=== PATIENT | female | born 1955 | race Caucasian/White ===

== ENCOUNTER → 2016-08-01 | Outpatient (CLI) | payer SELFPAY ==
--- NOTE | 2016-08-02 14:07 | MM ---
Reason for exam: screening (asymptomatic). Last mammogram was performed 1 year ago. History: Patient is postmenopausal. Took hormonal contraceptives for 10 years beginning at age 19. Physical Findings: A clinical breast exam by your physician is recommended on an annual basis and results should be correlated with mammographic findings. MG Screening Mammo w CAD Bilateral CC and MLO view(s) were taken. Prior study comparison: July 28, 2015, bilateral MG 3d screening mammo w/cad. There are scattered fibroglandular densities. ASSESSMENT: Benign, BI-RAD 2 RECOMMENDATION: Routine screening mammogram of both breasts in 1 year.
== END | disposition home or self-care (01) ==
LOC: RADMAMWWP 10:57
PROVIDERS: ATTEND Obstetrics & Gynecology
DX: Z12.31 Encounter for screening mammogram for malignant neoplasm of breast (principal)

== ENCOUNTER 2017-05-25 13:31 | Observation (INO) | payer OTHER ==
[2017-05-25] MEDS ORDERED: ASPIRIN 81 MG PO STA (13:51)
[2017-05-25] MEDS ORDERED: RX INFO: IV CONTRAST WAS GIVEN 1 EACH MISC MISCELLANE PRN (13:55)
--- NOTE | 2017-05-25 13:55 | ED ---
Chest Pain HPI - General Chief Complaint: Chest Pain Stated Complaint: Chest pain Time Seen by Provider: 05/25/17 13:36 Source: patient, RN notes reviewed Mode of arrival: wheelchair Limitations: no limitations - History of Present Illness Initial Comments: this a 61-year-old female presents emergency Department from PCPs office for chest pain. Patient states she was woken up around 3 AM with chest pain and pressure and felt that some he was choking her. She states that she wasn't sure what was going on. She had pain especially in the left side of her neck. Patient states she has been sick for last few days with cough and congestion with these symptoms were new. She does have a history of hyperlipidemia hypertension or diabetes no prior cardiac disorders and denies any known COPD though she is a former smoker. Patient states she went PCPs office who sent her here for further evaluation. She denies any current nausea vomiting states that the pain is improved from earlier. Denies any headache or dizziness no focal weakness. - Related Data Home Medications Medication Instructions Recorded Confirmed Atenolol [Tenormin] 50 mg PO BID 05/25/17 05/25/17 Losartan/Hydrochlorothiazide 1 tab PO DAILY 05/25/17 05/25/17 [Hyzaar 100-25 Tablet] Pravastatin Sodium [Pravachol] 40 mg PO HS 05/25/17 05/25/17 amLODIPine [Norvasc] 5 mg PO HS 05/25/17 05/25/17 busPIRone HCl [Buspar] 10 mg PO BID 05/25/17 05/25/17 cloNIDine HCL [Catapres] 0.2 mg PO HS 05/25/17 05/25/17 Allergies Allergy/AdvReac Type Severity Reaction Status Date / Time No Known Allergies Allergy Verified 05/25/17 14:02 Review of Systems ROS Statement: Those systems with pertinent positive or pertinent negative responses have been documented in the HPI. ROS Other: All systems not noted in ROS Statement are negative. EKG Findings - EKG Comments: EKG Findings:: EKG performed at 13:47 normal sinus rhythm with a rate of 73 TX 154, QRS 82 QT/QTC 404/445 Past Medical History Past Medical History: Hypertension History of Any Multi-Drug Resistant Organisms: None Reported Past Surgical History: Tubal Ligation Past Psychological History: Anxiety Smoking Status: Former smoker Past Alcohol Use History: None Reported Past Drug Use History: None Reported General Exam Limitations: no limitations General appearance: alert, in no apparent distress Head exam: Present: atraumatic, normocephalic, normal inspection Eye exam: Present: normal appearance, PERRL, EOMI. Absent: scleral icterus, conjunctival injection, periorbital swelling ENT exam: Present: normal exam, normal oropharynx, mucous membranes moist, TM's normal bilaterally, normal external ear exam Neck exam: Present: normal inspection, full ROM. Absent: tenderness, meningismus, lymphadenopathy Respiratory exam: Present: normal lung sounds bilaterally. Absent: respiratory distress, wheezes, rales, rhonchi, stridor Cardiovascular Exam: Present: regular rate, normal rhythm, normal heart sounds. Absent: systolic murmur, diastolic murmur, rubs, gallop, clicks GI/Abdominal exam: Present: soft, normal bowel sounds. Absent: distended, tenderness, guarding, rebound, rigid Extremities exam: Present: normal inspection, full ROM, normal capillary refill. Absent: tenderness, pedal edema, joint swelling, calf tenderness Back exam: Absent: CVA tenderness (R), CVA tenderness (L) Neurological exam: Present: alert, oriented X3, CN II-XII intact Skin exam: Present: warm, dry, intact, normal color. Absent: rash Course Vital Signs 05/25/17 05/25/17 05/25/17 13:34 14:21 14:28 Temperature 100.5 F H Pulse Rate 71 68 Respiratory 16 16 16 Rate Blood Pressure 218/95 149/87 O2 Sat by Pulse 95 95 Oximetry Disposition Clinical Impression: Chest pain Disposition: ADMITTED IP TO THIS HOSP Condition: Stable Referrals: Conor Mccord MD [Primary Care Provider] - 1-2 days
[2017-05-25] MEDS ORDERED: hydrALAZINE HCL 20 MG/ML 1 ML VIAL IVP STA (13:56)
[2017-05-25 14:18] LABS: Basophils % (A) 0 %; Eosinophils % (A) 0 %; HCT 49.4 % (34.0-46.0); HGB 17.2 gm/dL (11.4-16.0); Lymphocytes # (A) 1.2 k/uL (1.0-4.8); Lymphocytes % (A) 13 %; MCHC 34.9 g/dL (31.0-37.0); MCV 85.9 fL (80.0-100.0); Monocytes # (A) 0.3 k/uL (0-1.0); Monocytes % (A) 3 %; Neutrophils # (A) 7.4 k/uL (1.3-7.7); Neutrophils % (A) 81 %; Platelet Count 425 k/uL (150-450); RBC 5.75 m/uL (3.80-5.40); RDW 12.8 % (11.5-15.5); WBC 9.1 k/uL (3.8-10.6)
[2017-05-25 14:27] LABS: ALT 43 U/L (9-52); AST 36 U/L (14-36); Albumin 4.8 g/dL (3.5-5.0); Alkaline Phosphatase 75 U/L (38-126); Anion Gap 17 mmol/L; Blood Urea Nitrogen 10 mg/dL (7-17); Calcium 10.5 mg/dL (8.4-10.2); Carbon Dioxide 21 mmol/L (22-30); Chloride 103 mmol/L (98-107); Glucose 117 mg/dL (74-99); Lipase 117 U/L (23-300); Magnesium 1.9 mg/dL (1.6-2.3); Potassium 4.2 mmol/L (3.5-5.1); Sodium 141 mmol/L (137-145); Total Bilirubin 0.8 mg/dL (0.2-1.3); Total Protein 7.9 g/dL (6.3-8.2)
[2017-05-25 14:29] LABS: INR 1.1 (<1.2); Partial Thromboplastin Time 23.3 sec (22.0-30.0); Prothrombin Time 10.7 sec (9.0-12.0)
[2017-05-25 14:39] LABS: Creatine Kinase 64 U/L (30-135)
[2017-05-25 14:52] LABS: Creatine Kinase MB 0.9 ng/mL (0.0-2.4); Troponin I <0.012 ng/mL (0.000-0.034)
--- NOTE | 2017-05-25 14:57 | CT ---
EXAMINATION TYPE: CT chest angio for PE DATE OF EXAM: 05/25/2017 COMPARISON: NONE HISTORY: 61-year-old female Mid chest pain and shortness of breath. TECHNIQUE: Contiguous axial scanning of the chest performed with IV Contrast, patient injected with 1 00 mL of Isovue 370. Coronal/sagittal MIP reconstructions performed. CT DLP: 239.6 mGycm Automated exposure control for dose reduction was used. FINDINGS: Heart is normal size without pericardial effusion. Aorta normal caliber with conventional arch vessel branching anatomy. No thoracic lymphadenopathy. While there is satisfactory opacification of the pulmonary system, there aren't respiratory motion ar tifacts limiting assessment; no definite pulmonary embolus is seen. No flattening of the interventric ular septum by reflux of contrast into the hepatic veins. Mild diffuse bronchial wall thickening. Some hazy areas of atelectasis in the lower lungs. No consoli dation or pleural effusion. Mild biapical pleural-parenchymal scarring is noted. Moderate to large hiatal hernia. Subtle 8mm nodularity right adrenal gland statistically represents a benign adrenal adenoma. Bones: No osseous destructive process. IMPRESSION: 1. RESPIRATORY MOTION ARTIFACTS LIMITING THE EXAM. NO DEFINITE PULMONARY EMBOLUS. 2. MILD DIFFUSE BRONCHIAL WALL THICKENING SUGGESTS BRONCHITIS OR ASTHMA. 3. MODERATE TO LARGE HIATAL HERNIA. 4. AN 8 MM NODULE OF THE RIGHT ADRENAL GLAND. STATISTICALLY, REPRESENTS A BENIGN ADRENAL ADENOMA. ONE -YEAR FOLLOW-UP EXAMINATION CAN BE PERFORMED.
--- NOTE | 2017-05-25 14:58 | XR ---
EXAMINATION TYPE: XR chest 2V DATE OF EXAM: 05/25/2017 COMPARISON: NONE HISTORY: Chest pain for one day TECHNIQUE: Frontal and lateral views of the chest are obtained. FINDINGS: There is no focal air space opacity, pleural effusion, or pneumothorax seen. The cardiac silhouette size is within normal limits. The osseous structures are intact. There is a moderate hia yi hernia seen. IMPRESSION: No acute cardiopulmonary process. Moderate hernia.
[2017-05-25] MEDS ORDERED: NITROGLYCERIN SL TABS 0.4 MG TAB SUBLINGUAL PRN (15:42)
[2017-05-25] MEDS ORDERED: HEPARIN SODIUM,PORCINE 5,000 UNIT/ML 1 ML VIAL IV ONE (15:42)
[2017-05-25] MEDS ORDERED: HEPARIN SOD,PORK IN 0.45% NACL 25,000 UNIT in 0.45% NACL 1 500ML.BAG IV SCH (15:45)
[2017-05-25] MEDS ORDERED: LORazepam 2 MG/ML INJ IV STA (16:41)
[2017-05-25] MEDS ORDERED: ALPRAZolam 0.25 MG TAB PO PRN (18:34)
[2017-05-25] MEDS ORDERED: ACETAMINOPHEN TAB 325 MG TAB PO PRN (19:41)
[2017-05-25] MEDS ORDERED: BENZOCAINE/MENTHOL LOZENG 1 EACH LOZENGE MUCOUS MEM PRN (19:46)
[2017-05-25 20:17] LABS: Creatine Kinase 58 U/L (30-135)
[2017-05-25] MEDS: ATENOLOL 50 MG TAB PO SCH (20:21)
[2017-05-25] MEDS: busPIRone HCl 10 MG TAB PO SCH (20:21)
[2017-05-25 20:30] LABS: Creatine Kinase MB 0.7 ng/mL (0.0-2.4); Troponin I <0.012 ng/mL (0.000-0.034)
[2017-05-25] MEDS ORDERED: cloNIDine HCL 0.2 MG TAB PO SCH (21:00)
[2017-05-25] MEDS ORDERED: amLODIPine 5 MG TAB PO SCH (21:00)
[2017-05-25] MEDS ORDERED: PRAVASTATIN SODIUM 40 MG TAB PO SCH (21:00)
[2017-05-25 23:37] VITALS: RESP 18
[2017-05-26] MEDS ORDERED: guaiFENesin SYRUP 100MG/5ML 200 MG/10 ML CUP PO PRN (01:26)
[2017-05-26 02:52] LABS: Creatine Kinase 53 U/L (30-135)
[2017-05-26 03:04] LABS: Creatine Kinase MB 0.8 ng/mL (0.0-2.4); Troponin I <0.012 ng/mL (0.000-0.034)
[2017-05-26 06:35] LABS: Cholesterol 182 mg/dL (<200); HDL Cholesterol 55 mg/dL (40-60); LDL Cholesterol,Calculated 92 mg/dL (0-99); Triglycerides 173 mg/dL (<150)
[2017-05-26 07:39] VITALS: TEMP 98.5
[2017-05-26] MEDS: busPIRone HCl 10 MG TAB PO SCH (08:23)
[2017-05-26] MEDS ORDERED: ASPIRIN 325 MG TAB PO SCH (09:00)
[2017-05-26] MEDS ORDERED: LOSARTAN-HCTZ 50-12.5 MG 1 EACH TAB PO SCH (09:00)
--- NOTE | 2017-05-26 09:20 | P.CRDCN ---
History of Present Illness History of present illness: Assessment 61-year-old female presenting with tightness in the throat lasting seconds in association with a sore throat difficult to swallowing upper respiratory infection and vague discomfort in the chest normal cardiac enzymes normal ECG Early onset hypertension with 30s. Family history of hypertension starting in the mid 30s dyslipidemia Adrenal nodule noted on CT Plan Exercise stress test maximum capacity Serum aldosterone, aspirin an life enrichment director, metanephrines Renal artery Dopplers, bilateral Increase amlodipine continue losartan and hydrochlorothiazide stop clonidine and try tapering of atenolol Further cardiovascular workup as an outpatient Past Medical History Past Medical History: Hyperlipidemia, Hypertension Additional Past Medical History / Comment(s): 3 HERNIATED DISC, ARTHRITIS History of Any Multi-Drug Resistant Organisms: None Reported Past Surgical History: Ablation, Tubal Ligation Past Anesthesia/Blood Transfusion Reactions: No Reported Reaction Smoking Status: Former smoker - Past Family History Mother Family Medical History: Hypertension, Osteoarthritis (OA) Additional Family Medical History / Comment(s): DEPRESSION, LUNG DISEASE Father Family Medical History: Cancer Additional Family Medical History / Comment(s): THROAT CA WAS HEAVY SMOKER AND DRINKER Medications and Allergies Home Medications Medication Instructions Recorded Confirmed Type Atenolol [Tenormin] 50 mg PO BID 05/25/17 05/25/17 History Losartan/Hydrochlorothiazide 1 tab PO DAILY 05/25/17 05/25/17 History [Hyzaar 100-25 Tablet] Pravastatin Sodium [Pravachol] 40 mg PO HS 05/25/17 05/25/17 History amLODIPine [Norvasc] 5 mg PO HS 05/25/17 05/25/17 History busPIRone HCl [Buspar] 10 mg PO BID 05/25/17 05/25/17 History cloNIDine HCL [Catapres] 0.2 mg PO HS 05/25/17 05/25/17 History Aspirin [Adult Low Dose Aspirin EC] 81 mg PO HS 05/26/17 05/26/17 History Allergies Allergy/AdvReac Type Severity Reaction Status Date / Time No Known Allergies Allergy Verified 05/25/17 14:02 Physical Exam Vitals: Vital Signs Temp Pulse Pulse Resp BP BP Pulse Ox 05/26/17 08:00 18 05/26/17 07:39 98.5 F 71 18 137/75 97 05/26/17 04:00 98.6 F 69 18 141/77 98 05/26/17 03:43 18 05/25/17 23:35 18 05/25/17 23:07 98.6 F 68 17 99/59 100 05/25/17 20:00 98.1 F 70 18 142/69 96 05/25/17 17:16 98.8 F 72 17 147/79 97 05/25/17 16:48 163/83 05/25/17 16:17 98 F 66 16 185/84 96 05/25/17 15:55 98.9 F 68 16 160/90 98 05/25/17 14:28 68 16 149/87 95 05/25/17 14:21 16 05/25/17 13:34 100.5 F H 71 16 218/95 95 Intake and Output 05/25/17 05/26/17 05/26/17 22:59 06:59 14:59 Intake Total 740 225.76 Balance 740 225.76 Intake: Intake, IV Titration 225.76 Amount Heparin Sod,Pork in 0.45% 225.76 NaCl 25,000 unit In 0.45 % NaCl 1 500ml.bag @ 12 UNITS/KG/HR 16.32 mls/hr IV .Q24H [facility] Rx#: [id number] Oral 740 Other: Voiding Method Toilet Toilet Toilet # Voids 1 Weight 67.3 kg Results 05/25/17 14:01 05/25/17 14:01 Cardiac Enzymes 05/25/17 05/25/17 05/25/17 Range/Units 14:01 14:01 19:38 AST 36 (14-36) U/L CK-MB (CK-2) 0.9 0.7 (0.0-2.4) ng/mL Troponin I <0.012 <0.012 (0.000-0.034) ng/mL 05/26/17 Range/Units 01:57 AST (14-36) U/L CK-MB (CK-2) 0.8 (0.0-2.4) ng/mL Troponin I <0.012 (0.000-0.034) ng/mL Coagulation 05/25/17 05/25/17 05/26/17 Range/Units 14:01 23:18 05:36 PT 10.7 (9.0-12.0) sec APTT 23.3 49.5 H 44.7 H (22.0-30.0) sec Lipids 05/26/17 Range/Units 05:36 Triglycerides 173 H (<150) mg/dL Cholesterol 182 (<200) mg/dL HDL Cholesterol 55 (40-60) mg/dL CBC 05/25/17 Range/Units 14:01 WBC 9.1 (3.8-10.6) k/uL RBC 5.75 H (3.80-5.40) m/uL Hgb 17.2 H (11.4-16.0) gm/dL Hct 49.4 H (34.0-46.0) % Plt Count 425 (150-450) k/uL Comprehensive Metabolic Panel 05/25/17 Range/Units 14:01 Sodium 141 (137-145) mmol/L Potassium 4.2 (3.5-5.1) mmol/L Chloride 103 (98-107) mmol/L Carbon Dioxide 21 L (22-30) mmol/L BUN 10 (7-17) mg/dL Creatinine 0.73 (0.52-1.04) mg/dL Glucose 117 H (74-99) mg/dL Calcium 10.5 H (8.4-10.2) mg/dL AST 36 (14-36) U/L ALT 43 (9-52) U/L Alkaline Phosphatase 75 (38-126) U/L Total Protein 7.9 (6.3-8.2) g/dL Albumin 4.8 (3.5-5.0) g/dL Current Medications Generic Name Dose Route Start Last Admin Trade Name Freq PRN Reason Stop Dose Admin Acetaminophen 650 mg 05/25/17 19:41 05/25/17 20:21 Tylenol Tab PO 650 mg Q4HR PRN Administration Fever and/ or Pain Alprazolam 0.25 mg 05/25/17 18:34 05/26/17 02:21 Xanax PO 0.25 mg Q8HR PRN Administration Anxiety Amlodipine Besylate 10 mg 05/26/17 21:00 Norvasc PO HS [facility] Aspirin 325 mg 05/26/17 09:00 05/26/17 08:23 Aspirin PO 325 mg DAILY [facility] Administration Atenolol 50 mg 05/25/17 21:00 05/25/17 20:21 Tenormin PO 50 mg BID [facility] Administration Benzocaine/Menthol 1 each 05/25/17 19:46 05/25/17 20:20 Cepacol Lozenge MUCOUS MEM 1 each Q4HR PRN Administration Sore Throat Buspirone HCl 10 mg 05/25/17 21:00 05/26/17 08:23 Buspar PO 10 mg BID [facility] Administration Guaifenesin 200 mg 05/26/17 01:26 Robitussin PO Q6H PRN Cough HCTZ/Losartan Potassium 2 each 05/26/17 09:00 05/26/17 08:23 Hyzaar 50-12.5 PO 2 each DAILY [facility] Administration Miscellaneous Information 1 each 05/25/17 13:55 05/25/17 14:34 Rx Info: Iv Contrast Was Given MISCELLANE 05/27/17 13:55 1 each DAILY PRN Administration Per Protocol Nitroglycerin 0.4 mg 05/25/17 15:42 Nitrostat SUBLINGUAL Q5M PRN Chest Pain Pravastatin Sodium 40 mg 05/25/17 21:00 05/25/17 20:21 Pravachol PO 40 mg HS [facility] Administration Intake and Output 05/25/17 05/26/17 05/26/17 22:59 06:59 14:59 Intake Total 740 225.76 Balance 740 225.76 Intake: Intake, IV Titration 225.76 Amount Heparin Sod,Pork in 0.45% 225.76 NaCl 25,000 unit In 0.45 % NaCl 1 500ml.bag @ 12 UNITS/KG/HR 16.32 mls/hr IV .Q24H [facility] Rx#: [id number] Oral 740 Other: Voiding Method Toilet Toilet Toilet # Voids 1 Weight 67.3 kg 05/25/17 14:01 05/25/17 14:01
--- NOTE | 2017-05-26 10:02 | CONS ---
CONSULTATION Roxie moura is a 61-year-old female who woke up from her sleep complaining of a tightness and a choking sensation in the throat as well as some upper chest discomfort. She went to see Dr. Conor Mccord and was sent to the ER to rule out possible AL. For the last few days, she has been experiencing some cough and upper respiratory infection and mild bronchitic symptoms. She woke up in the middle of the night and experienced this choking, tightness in her throat that lasted for just a few seconds. It was a very brief episode. She does not have the choking sensation anymore, but she does have a very mild dull ache in the upper chest, which has been constant since arrival, greater than 12 hours back. She has swallowing difficulty. She says she has a sore throat. She actually does not come out with this history, but later she says she does have a sore throat. She looks comfortable at this time. She says she has anxiety and she is very nervous when she came in. Her blood pressure was high. Her blood pressure now is better. She is on 4 different blood pressure medications and she does not like the fact that she has to take so many blood pressure pills. PAST HISTORY: Past history of being sick for the last few days with cough, congestion. History of hypertension. She has no diabetes. She has dyslipidemia. She is on medication for that. SOCIAL HISTORY: She is a former former smoker. She had not smoked cigarettes for almost 10 years. REVIEW OF SYSTEMS: No fever, chills, or rigors. She did have a cough and some expectoration and upper respiratory infection. No nausea, vomiting, or diarrhea. No hematuria or dysuria. No strokes or seizures. No skin lesions or musculoskeletal complaints. MEDICATIONS: Medications at home include Tenormin 50 mg twice daily, losartan hydrochlorothiazide 100/25 mg p.o. daily, Pravachol 40 mg p.o. daily, amlodipine 5 mg q.h.s., BuSpar and clonidine 0.2 mg q.h.s. ALLERGIES: No known drug allergies. FAMILY HISTORY: Noncontributory. PHYSICAL EXAMINATION: On examination, her blood pressure is 137/75 mmHg, 141/77 mmHg. Head and neck examination is normal. No JVD, thyromegaly or carotid bruits. Heart sounds S1, S2 normal. No murmurs or gallops. No rub. Breath sounds reveal scattered rhonchi and some crackles at the bases. Abdomen is soft, nontender. Extremities are warm. No edema. A 12-lead ECG shows sinus rhythm with normal cardiac intervals. There is no definite ST-segment abnormality today. Yesterday she had a very subtle ST-segment abnormality in the lateral precordial leads, but these look normal today. LABS: Labs are reviewed. Cardiac enzymes are completely normal x3. Lipid panel was reviewed. Triglycerides 173, cholesterol 182, LDL 92, and HDL 55. BUN is 10, creatinine 0.73. Hemoglobin 17.2, white count is normal. Lipase is normal. Influenza type A and B not detected. IMPRESSION: 1. Upper respiratory infection with sore throat. 2. Mild chest discomfort and tightness in the throat. The tightness in the throat was extremely brief. 3. No evidence for myocardial injury. 4. Hypertension with fluctuating blood pressures and somewhat blood pressure control despite multiple medications. 5. Dyslipidemia. SUGGEST: Stop IV heparin. Increase amlodipine to 10 mg at night. Continue losartan hydrochlorothiazide 100/25 mg p.o. daily. Stop clonidine completely to avoid rebound hypertension and consider slowly tapering off atenolol completely and use 2 medications to control her blood pressure. The alternative for losartan hydrochlorothiazide would be irbesartan hydrochlorothiazide. Stress test will be ordered today. Her blood pressure is in the normal range. If this is normal, she may go home. I will see her again in about 2 to 3 weeks. I will also order a renal artery Doppler today because she has had hypertension after the of her daughter when she was about 36. She has a strong family history of hypertension of an early onset. Her brother had hypertension in his mid 30s and so did her mother. The CT scan confirmed her mild bronchitic symptoms with peribronchial cuffing. It also showed an 8 mm adrenal nodule and therefore some basic workup should probably be considered although she is on losartan at this time. MMODL / IJN: [id number] /
--- NOTE | 2017-05-26 10:25 | US ---
EXAMINATION TYPE: US renal artery duplex complete DATE OF EXAM: 05/26/2017 COMPARISON: NONE CLINICAL HISTORY: high blood pressure. HTN for 30 years MEASUREMENTS: RENAL SIZE: Rt Kidney: 10.4 x 3.4 x 4.3cm Lt Kidney: 10.2 x 5.0 x 4.6cm RESISTANCE INDEX Right: 0.54 Left: 0.59 RA/AO RATIO (< 3.5 ) Right: 2.4 Left: 2.2 RA VELOCITY ( < 180 cm/s) Right: 184.9cm/s Left: 167.3cm/s Aorta and renals appear unremarkable. Right proximal renal artery appears upper limits of normal. Low resistive waveforms noted throughout IMPRESSION: There is some increased velocity within the right renal artery. Consider additional workup with MRA r enal arteries. Resistive index and ratios however appear within normal limits suggesting degree of st enosis may be mild.
[2017-05-26] MEDS: ATENOLOL 50 MG TAB PO SCH (11:05)
[2017-05-26 11:22] VITALS: BP 114/78; PULSE 85
--- NOTE | 2017-05-26 12:23 | ECHOS ---
STRESS ECHOCARDIOGRAM DATE OF SERVICE: 05/26/2017 INDICATIONS: Chest pain. MEDICATIONS: BASELINE HEART RATE: 84 BASELINE BLOOD PRESSURE: 142/106 MAXIMUM HEART RATE: 152 MAXIMUM BLOOD PRESSURE: 211/105 85% MPHR: 137 100% MPHR: 161 METS: 9.1 MAXIMUM STAGE REACHED: III TOTAL EXERCISE TIME: 7:30 CLINICAL INFORMATION: History of chest discomfort and discomfort in the throat, history of hypertension, suboptimal control, history of dyslipidemia. Baseline heart rate 84 beats per minute. Baseline blood pressure 142/106 mmHg. Baseline 12-lead ECG shows showed normal sinus rhythm with normal ST segments. The patient exercised on a Frederick protocol for 7-1/2 minutes achieving a peak heart rate of 152 beats per minute, hypertensive response to exercise 211/105 mmHg. There was no ECG evidence for ischemia during exercise up until 2 minutes into recovery. Thereafter, there was [address] depression with inverted T-waves noted without any symptoms. The baseline 2D echo images were suboptimal. Therefore, Definity contrast was used to the endocardial borders of the left ventricle. At baseline the LV size and function was normal without segmental wall motion abnormalities. At peak exercise, there was excellent augmentation of overall LV contractility without development of any wall motion abnormalities. At recovery regional global LV systolic function remained completely normal with excellent myocardial thickening. At the time of ST-T changes late into recovery, the patient remained asymptomatic. The LV function was normal and LV contractility was excellent with excellent myocardial thickening throughout without any wall motion abnormalities. IMPRESSION: Likely false-positive stress test in this lady with history of suboptimal hypertension control. SUGGEST: Maximize antihypertensive therapy and continue statins and baby aspirin. MMODL / IJN: [id number] /
--- NOTE | 2017-05-26 13:37 | P.HPIM ---
History of Present Illness H&P Date: 05/26/17 HISTORY AND PHYSICAL AND DISCHARGE SUMMARY: This is a 61-year-old female patient of Dr. Conor Mccord with past medical history of hyperlipidemia, hypertension, herniated lumbar disc, osteoarthritis. Patient states that she woke up at 3 in the morning with chest pain and pressure and choking feeling in her throat along with a sore throat and feeling like her neck was could not close up on her. She also felt a little dizzy. No arm pain, no numbness or tingling of the arms, no sweating no nausea. Patient went to Dr. Conor Mccord's office and was directed to the emergency center. Patient presented to [facility] emergency center with the above concerns. She was found to have a blood pressure of 218/ 95. She was started on heparin drip, troponin was negative initially influenza testing negative, triglycerides 173, cholesterol 182, LDl 92, HDL 55. Hemoglobin 17.2. Electrodes were within normal limits and creatinine 0.73. Patient is also states that she had a cold last week as well as her and has had ongoing problems with nasal congestion. At this time, she states her throat is so sore that she can't swallow or eat food. She underwent a CTA of the chest that showed no definite PE. Bronchitis or asthma. Large hiatal hernia. 8 mm nodule of the right adrenal gland most likely benign adrenal adenoma. Patient was placed on the observation unit and started on heparin drip. Serial troponins were done which were all negative Dr. Mejia from cardiology and he increased her amlodipine to 10 mg and discontinue clonidine with plan to taper atenolol and continue losartan and hydrochlorothiazide. He is ordered an exercise stress test that was a false-positive stress test with recommendations to maximize antihypertensive therapy and continue statins and baby aspirin. Renal duplex revealed some increased velocity within the right renal artery. Consider additional workup with MRA of the renal arteries. Patient verbalizes that she has had ongoing problems with anxiety and she can hardly sleep during the night due to anxiety. Patient will be started on Klonopin 0.5 mg at bedtime. She is already on which will be increased to 15 mg twice daily. Patient will be discharged home today in stable condition. Discharge Medication List Atenolol [Tenormin] 50 mg PO BID 05/25/17 [History] Losartan/Hydrochlorothiazide [Hyzaar 100-25 Tablet] 1 tab PO DAILY 05/25/17 [ History] Pravastatin Sodium [Pravachol] 40 mg PO HS 05/25/17 [History] busPIRone HCl [Buspar] 10 mg PO BID 05/25/17 [History] Aspirin [Adult Low Dose Aspirin EC] 81 mg PO HS 05/26/17 [History] amLODIPine [Norvasc] 10 mg PO HS #30 tab 05/26/17 [Rx] busPIRone HCL [Buspar] 15 mg PO BID #30 tab 05/26/17 [Rx] clonazePAM [KlonoPIN] 0.5 mg PO HS #30 tablet 05/26/17 [Rx] guaiFENesin SYRUP 100MG/5ML [Robitussin] 200 mg PO Q6H PRN cup 05/26/17 [Rx] Review of Systems All systems: negative Constitutional: Reports poor appetite, Denies anorexia, Denies chills, Denies fatigue, Denies fever, Denies lethargy, Denies malaise, Denies night sweats, Denies sweats, Denies weakness, Denies weight loss Eyes: denies blurred vision, denies pain Ears, nose, mouth and throat: Reports nasal congestion, Reports swelling in throat, Reports sore throat, Denies dental pain, Denies headache, Denies hoarseness, Denies mouth pain, Denies vertigo Cardiovascular: Reports chest pain, Reports high blood pressure, Reports lightheadedness, Denies decreased exercise tolerance, Denies dyspnea on exertion , Denies edema, Denies leg edema, Denies palpitations, Denies shortness of breath, Denies syncope Respiratory: Denies cough, Denies cough with sputum, Denies dyspnea, Denies excessive sputum, Denies hemoptysis, Denies home oxygen, Denies wheezing Gastrointestinal: Denies abdominal pain, Denies diarrhea, Denies nausea, Denies vomiting Genitourinary: Denies dysuria, Denies hematuria Musculoskeletal: Denies myalgias Integumentary: Denies pruritus, Denies rash Neurological: Denies numbness, Denies weakness Psychiatric: Reports anxiety, Reports anxiety attacks, Denies depression Endocrine: Denies fatigue, Denies weight change Past Medical History Past Medical History: Hyperlipidemia, Hypertension, Osteoarthritis (OA) Additional Past Medical History / Comment(s): 3 HERNIATED LUMBAR DISC History of Any Multi-Drug Resistant Organisms: None Reported Past Surgical History: Ablation, Tubal Ligation Past Anesthesia/Blood Transfusion Reactions: No Reported Reaction Smoking Status: Former smoker Additional Past Alcohol Use History / Comment(s): Patient was a smoker for 19 years and quit in 1992. 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 She lives at home with her . - Past Family History Mother Family Medical History: Hypertension, Osteoarthritis (OA) Additional Family Medical History / Comment(s): Mother at age 78 from consultations from COPD with history of depression and generalized anxiety disorder Father Family Medical History: Cancer Additional Family Medical History / Comment(s): Father at age 50 from THROAT CA WAS HEAVY SMOKER AND DRINKER Brother(s) Additional Family Medical History / Comment(s): Patient has 4 brothers and one has history of prostate cancer. Patient does not have any sisters. Patient has one son with some type of cancer and one daughter with no major medical problems. Medications and Allergies Home Medications Medication Instructions Recorded Confirmed Type Atenolol [Tenormin] 50 mg PO BID 05/25/17 05/25/17 History Losartan/Hydrochlorothiazide 1 tab PO DAILY 05/25/17 05/25/17 History [Hyzaar 100-25 Tablet] Pravastatin Sodium [Pravachol] 40 mg PO HS 05/25/17 05/25/17 History busPIRone HCl [Buspar] 10 mg PO BID 05/25/17 05/25/17 History Aspirin [Adult Low Dose Aspirin EC] 81 mg PO HS 05/26/17 05/26/17 History amLODIPine [Norvasc] 10 mg PO HS #30 tab 05/26/17 Rx busPIRone HCL [Buspar] 15 mg PO BID #30 tab 05/26/17 Rx clonazePAM [KlonoPIN] 0.5 mg PO HS #30 tablet 05/26/17 Rx guaiFENesin SYRUP 100MG/5ML 200 mg PO Q6H PRN cup 05/26/17 Rx [Robitussin] Allergies Allergy/AdvReac Type Severity Reaction Status Date / Time No Known Allergies Allergy Verified 05/25/17 14:02 Physical Exam Vitals: Vital Signs Temp Pulse Pulse Resp BP BP Pulse Ox 05/26/17 08:00 18 05/26/17 07:39 98.5 F 71 18 137/75 97 05/26/17 04:00 98.6 F 69 18 141/77 98 05/26/17 03:43 18 05/25/17 23:35 18 05/25/17 23:07 98.6 F 68 17 99/59 100 05/25/17 20:00 98.1 F 70 18 142/69 96 05/25/17 17:16 98.8 F 72 17 147/79 97 05/25/17 16:48 163/83 05/25/17 16:17 98 F 66 16 185/84 96 05/25/17 15:55 98.9 F 68 16 160/90 98 05/25/17 14:28 68 16 149/87 95 05/25/17 14:21 16 05/25/17 13:34 100.5 F H 71 16 218/95 95 Intake and Output 05/25/17 05/26/17 05/26/17 22:59 06:59 14:59 Intake Total 740 225.76 Balance 740 225.76 Intake: Intake, IV Titration 225.76 Amount Heparin Sod,Pork in 0.45% 225.76 NaCl 25,000 unit In 0.45 % NaCl 1 500ml.bag @ 12 UNITS/KG/HR 16.32 mls/hr IV .Q24H [facility] Rx#: [id number] Oral 740 Other: Voiding Method Toilet Toilet Toilet # Voids 1 Weight 67.3 kg Gen: This is a 61-year-old female sitting at edge of the bed and appears to be in no acute distress. Patient is able to speak in full sentences. No respiratory distress is noted. HEENT: Head is atraumatic, normocephalic. Pupils equal, round. Sclerae is anicteric. Oral mucous membranes are moist. No thrush noted. NECK: Supple. No JVD. No lymphadenopathy. No thyromegaly. No stridor noted. LUNGS: Clear to auscultation. No wheezes or rhonchi. No intercostal retractions. HEART: Regular rate and rhythm. No murmur. ABDOMEN: Soft. Bowel sounds are present. No masses. No tenderness. EXTREMITIES: No pedal edema. No calf tenderness. Dorsalis pedis +2 bilaterally. NEUROLOGICAL: Patient is awake, alert and oriented x3. Cranial nerves 2 through 12 are grossly intact. Results CBC & Chem 7: 05/25/17 14:01 05/25/17 14:01 Labs: Abnormal Lab Results - Last 24 Hours (Table) 05/25/17 05/25/17 05/25/17 Range/Units 14:01 14:01 23:18 RBC 5.75 H (3.80-5.40) m/uL Hgb 17.2 H (11.4-16.0) gm/dL Hct 49.4 H (34.0-46.0) % APTT 49.5 H (22.0-30.0) sec Carbon Dioxide 21 L (22-30) mmol/L Glucose 117 H (74-99) mg/dL Calcium 10.5 H (8.4-10.2) mg/dL Triglycerides (<150) mg/dL 05/26/17 05/26/17 Range/Units 05:36 05:36 RBC (3.80-5.40) m/uL Hgb (11.4-16.0) gm/dL Hct (34.0-46.0) % APTT 44.7 H (22.0-30.0) sec Carbon Dioxide (22-30) mmol/L Glucose (74-99) mg/dL Calcium (8.4-10.2) mg/dL Triglycerides 173 H (<150) mg/dL Thrombosis Risk Factor Assmnt - Choose All That Apply Any of the Below Risk Factors Present?: Yes Each Factor Represents 1 point: Age 41-60 years Other Risk Factors: No Other congenital or acquired thrombophilia - If yes, enter type in comment: No Thrombosis Risk Factor Assessment Total Risk Factor Score: 1 Thrombosis Risk Factor Assessment Level: Low Risk Assessment and Plan Plan: 1. Chest pain most likely secondary to generalized anxiety disorder or accelerated hypertension. Continue losartan and hydrochlorothiazide, atenolol, amlodipine increased to 10 mg and Catapres discontinued. 2. Accelerated hypertension. Medication changes made by Dr. Mejia. Aldosterone, renin direct and metanephrines ordered. 3. Possible right renal artery stenosis. Patient will have an outpatient MRA. 4. Generalized anxiety disorder with panic attacks and insomnia. BuSpar increased to 50 mg twice daily and Klonopin added. 5. Chronic pain with 3 herniated lumbar disc, stable. 6. Hyperlipidemia. Continue Pravachol 40 mg at bedtime. 7. Recent upper respiratory tract infection, stable. No need for antibiotics. Patient placed as an observation stay. Discharge plan: home Impression and plan of care have been directed as dictated by the signing physician. Zahira Ross nurse practitioner acting as scribe for signing physician.
[2017-05-26] MEDS ORDERED: amLODIPine 10 MG TAB PO SCH (21:00)
== END 2017-05-26 13:10 | disposition home or self-care (01) ==
LOC: EC 13:31 → 3OBS 15:56
PROVIDERS: ADMIT Internal Medicine; ATTEND Internal Medicine
DX: R07.89 Other chest pain (principal); F41.1 Generalized anxiety disorder; I10 Essential (primary) hypertension; J06.9 Acute upper respiratory infection, unspecified; J02.9 Acute pharyngitis, unspecified; G47.00 Insomnia, unspecified; F41.0 Panic disorder [episodic paroxysmal anxiety]; G89.29 Other chronic pain; M51.26 Other intervertebral disc displacement, lumbar region; E78.5 Hyperlipidemia, unspecified; M19.90 Unspecified osteoarthritis, unspecified site; D35.00 Benign neoplasm of unspecified adrenal gland; R42 Dizziness and giddiness; R09.89 Other specified symptoms and signs involving the circulatory and respiratory systems; Z87.891 Personal history of nicotine dependence; Z77.22 Contact with and (suspected) exposure to environmental tobacco smoke (acute) (chronic); Z82.5 Family history of asthma and other chronic lower respiratory diseases; Z81.8 Family history of other mental and behavioral disorders; Z80.8 Family history of malignant neoplasm of other organs or systems; Z80.42 Family history of malignant neoplasm of prostate; Z80.9 Family history of malignant neoplasm, unspecified; Z79.899 Other long term (current) drug therapy; Z79.82 Long term (current) use of aspirin
CPT/HCPCS: 99285 ×2; 96376 ×2; 96375 ×2; 96365 ×2; 96366 ×2; 36415; 93005; 93350; 93017; 83835; 83880; 80061; 80053; 82088; 82550 ×2; 82553 ×2; 84244; 83690; 83735; 84484 ×2; 85025; 85610; 85730 ×2; 87502; 71046; 93975; 71275; G0378 ×2; J2060; J1644 ×2; Q9950; Q9967

== ENCOUNTER → 2017-08-21 | Outpatient (CLI) | payer SELFPAY ==
--- NOTE | 2017-08-22 08:36 | MM ---
Reason for exam: screening (asymptomatic). Last mammogram was performed 1 year and 1 month ago. History: Patient is postmenopausal. Took hormonal contraceptives for 10 years beginning at age 19. Physical Findings: A clinical breast exam by your physician is recommended on an annual basis and results should be correlated with mammographic findings. MG Screening Mammo w CAD Bilateral CC and MLO view(s) were taken. Prior study comparison: August 01, 2016, bilateral MG screening mammo w CAD. July 28, 2015, bilateral MG 3d screening mammo w/cad. The breast tissue is heterogeneously dense. This may lower the sensitivity of mammography. Finding: There is a 10 mm equal density (isodense), obscured oval mass in the outer quadrant of the right breast. ASSESSMENT: Incomplete: need additional imaging evaluation, BI-RAD 0 RECOMMENDATION: Special view mammogram of the right breast. If lesion persists on supplemental views, image directed ultrasound is recommended. [facility] will attempt to contact patient to return for supplemental views and ultrasound if indicated.
== END | disposition home or self-care (01) ==
LOC: RADMAMWWP 12:47
PROVIDERS: ATTEND Family Medicine
DX: Z13.21 Encounter for screening for nutritional disorder (principal)
CPT/HCPCS: 77067

== ENCOUNTER → 2017-09-05 | Outpatient (CLI) | payer SELFPAY ==
--- NOTE | 2017-09-05 14:02 | MM ---
Reason for exam: additional evaluation requested from abnormal screening. Last mammogram was performed less than 1 month ago. History: Patient is postmenopausal. Took hormonal contraceptives for 10 years beginning at age 19. Physical Findings: Nurse did not find any significant physical abnormalities on exam. MG Work Up Mamm w CAD RT Spot compression CC, LM, and CC view(s) were taken of the right breast. Prior study comparison: August 21, 2017, bilateral MG screening mammo w CAD. August 01, 2016, bilateral MG screening mammo w CAD. July 28, 2015, bilateral MG 3d screening mammo w/cad. No definite lesion persist on additional views. Area felt to reflect asymmetric tissue. These results were verbally communicated with the patient and result sheet given to the patient on 09/05/17. ASSESSMENT: Benign, BI-RAD 2 RECOMMENDATION: Return to routine screening mammogram schedule for both breasts.
== END | disposition home or self-care (01) ==
LOC: RADMAMWWP 12:35
PROVIDERS: ATTEND Family Medicine
DX: R92.8 Other abnormal and inconclusive findings on diagnostic imaging of breast (principal)
CPT/HCPCS: 77065

== ENCOUNTER 2018-01-16 10:13 | Day surgery (SDC) | payer OTHER ==
[~2018-01-16 10:13] MED LIST: LACTATED RINGERS 1,000 ML IV SCH
[2018-01-16] MEDS ORDERED: LACTATED RINGERS 1,000 ML IV ONE (11:03)
[2018-01-16 11:04] VITALS: TEMP 99.8
[2018-01-16] MEDS ORDERED: LIDOCAINE 1% 20 ML VIAL (10MG/ML) FOR IV START INTRADERMA ONE (11:10)
[2018-01-16] MEDS ORDERED: PROPOFOL 10 MG/ML 20 ML VIAL IV ONE (12:03)
[2018-01-16 13:05] VITALS: RESP 16
--- NOTE | 2018-01-16 13:08 | P.PCN ---
Date of Procedure: 01/16/18 Procedure(s) Performed: Procedures: 1. Esophagogastroduodenoscopy and biopsy. 2. Colonoscopy and biopsy and polypectomy. Preoperative diagnosis: Abdominal bloating, epigastric pain and diarrhea. Postoperative diagnosis: 1. Small sliding hiatal hernia with no obvious esophagitis or complicated reflux disease. 2. Mild antral gastritis. 3. Diverticulosis with no evidence of acute diverticulitis or strictures. 4. Distal sigmoid polyp snared but no large polyps or cancer. 5. Biopsies obtained from the right colon to rule out microscopic colitis. Preparation: HalfLytely prep. Sedation: Was provided by anesthesia. Brief clinical history: The patient is a 62-year-old female who is scheduled for this evaluation for the above reasons. She has been having issues since late last month. Never had prior endoscopy. Procedure: With the patient on her left lateral decubitus position and after informed consent and adequate sedation, I passed the Olympus GIF H19T video upper endoscope through the cricopharyngeus down the esophagus. GE junction was around 32 cm from the incisors and there was a small sliding hiatal hernia but no obvious esophagitis or complicated reflux disease. The endoscope was then passed into the stomach which was insufflated with air and inspected in detail including the retroflex view in the cardia. There was some mottling and erythema in the antrum but no ulcers or erosions. Pyloric channel, duodenal bulb, post bulbar area and descending duodenum appeared within normal limits. I obtained biopsies from the duodenum, antrum and esophagus then the endoscope was withdrawn and I proceeded with the colonoscopy. Perianal area did not show any fissures or fistulas. There were no masses felt on digital rectal examination. The Olympus CFH 190L video colonoscope was then inserted in the rectum in the usual fashion and advanced to the cecum. Few unsuccessful attempts were made to intubate the ileocecal valve and examine the terminal ileum. There were several diverticular orifices seen scattered in the right colon but no evidence of acute diverticulitis or strictures. There was a polyp in the distal sigmoid which I snared and retrieved by suction but there were no polyps or cancer. I retroflexed the endoscope in the rectum before the endoscope was withdrawn and I obtained biopsies from the right colon to rule out microscopic colitis. The patient tolerated the procedure well. Plan: The patient was reassured. She will follow-up with you as planned. Will await biopsy results and make further plans. With the finding of polyp, I anticipate repeating this colonoscopy in 5 years.
[2018-01-16 13:25] VITALS: BP 128/75; PULSE 58
== END 2018-01-16 14:26 | disposition home or self-care (01) ==
LOC: ORWHC2ENDO 10:13
DX: K29.50 Unspecified chronic gastritis without bleeding (principal); K20.9 Esophagitis, unspecified; D12.5 Benign neoplasm of sigmoid colon; K44.9 Diaphragmatic hernia without obstruction or gangrene; K57.30 Diverticulosis of large intestine without perforation or abscess without bleeding; I10 Essential (primary) hypertension; E78.5 Hyperlipidemia, unspecified; M19.90 Unspecified osteoarthritis, unspecified site
CPT/HCPCS: 88305; 45380; 45385; 43239; J2704

== ENCOUNTER → 2018-03-06 | Outpatient (CLI) | payer OTHER ==
--- NOTE | 2018-03-06 11:17 | XR ---
EXAMINATION TYPE: XR chest 2V DATE OF EXAM: 03/06/2018 COMPARISON: Chest x-ray May 25, 2017. CT abdomen and pelvis December 28, 2017 HISTORY: Cough for couple weeks. TECHNIQUE: Frontal and lateral views of the chest are obtained. FINDINGS: There is no focal air space opacity, pleural effusion, or pneumothorax seen. The cardiac silhouette size is within normal limits. Small hiatal hernia is diminished in size from prior. The o sseous structures are intact. IMPRESSION: No new suspicious acute infiltrate.
--- NOTE | 2018-03-06 11:18 | XR ---
EXAMINATION TYPE: XR lumbar spine 2 or 3V DATE OF EXAM: 03/06/2018 CLINICAL HISTORY: Chronic low back pain. TECHNIQUE: Frontal, lateral, and oblique images of the lumbar spine are obtained. COMPARISON: CT abdomen and pelvis December 28, 2017 FINDINGS: There are 5 lumbar type vertebral bodies redemonstrated. The lumbar spine redemonstrates slight levoconvex scoliotic curvature centered L3 level without evidence of acute fracture or disloca tion. Vertebral body heights are within normal limits. There is mild multilevel disc space narrowing with mild to moderate multilevel anterior and lateral spurring redemonstrated. Some vascular calcific ation of the overlying abdominal aorta is again seen. IMPRESSION: As above. No significant change from prior CT.
== END ==
LOC: RADXRMAIN 10:30
PROVIDERS: ATTEND Family Medicine
DX: R05 Cough (principal)
CPT/HCPCS: 71046; 72100

== ENCOUNTER → 2018-05-15 | Outpatient (CLI) | payer OTHER ==
--- NOTE | 2018-05-15 14:45 | XR ---
EXAMINATION TYPE: XR lumbosacral spine min 4V DATE OF EXAM: 05/15/2018 CLINICAL HISTORY: Chronic low back pain with no known injury TECHNIQUE: Frontal, lateral, and oblique images of the lumbar spine are obtained. COMPARISON: 03/06/2018 FINDINGS: There are 5 lumbar type vertebral bodies identified. There is redemonstration of a mild l evoscoliotic curvature of the lumbar spine with apex at L3. Multilevel anterior osteophytes, facet ar thropathy, and endplate sclerosis are seen. The lumbar spine shows satisfactory alignment without bj dence of acute fracture or dislocation. Vertebral body heights and disk space heights are within norm al limits. The oblique images to demonstrate no pars interarticularis defects. The overlying soft tissue appears unremarkable. Minimal atherosclerosis of the abdominal aorta is noted. IMPRESSION: No acute fracture or malalignment is seen in the lumbar spine. Redemonstration of modera te multilevel degenerative disc disease and mild levoscoliosis.
== END | disposition home or self-care (01) ==
LOC: RADXRMAIN 13:53
PROVIDERS: ATTEND Family Medicine
DX: M51.37 Other intervertebral disc degeneration, lumbosacral region (principal); M41.87 Other forms of scoliosis, lumbosacral region
CPT/HCPCS: 72110

== ENCOUNTER → 2018-06-13 | Outpatient (CLI) | payer OTHER ==
--- NOTE | 2018-06-13 14:34 | USB ---
Reason for exam: clinical finding. History: Patient is postmenopausal. Took hormonal contraceptives for 10 years beginning at age 19. Physical Findings: Nurse Summary: bilateral prominent nodularity, all soft, movable (nurse ts). US Breast LT Left complete breast ultrasound includes all four quadrants, the retroareolar region and axilla. Finding demonstrates no cystic or solid lesion seen. No suspicious sonographic finding. No palpable abnormality. Breast pain only. These results were verbally communicated with the patient and result sheet given to the patient on 06/13/18. ASSESSMENT: Negative, BI-RAD 1 RECOMMENDATION: Return to routine screening mammogram schedule for both breasts. Back on schedule for August 2018.
== END | disposition home or self-care (01) ==
LOC: RADUSWWP 13:28
PROVIDERS: ATTEND Family Medicine
DX: N64.4 Mastodynia (principal)

== ENCOUNTER → 2018-06-28 | Outpatient (CLI) | payer OTHER ==
--- NOTE | 2018-06-28 15:21 | XR ---
EXAMINATION TYPE: XR chest 2V DATE OF EXAM: 06/28/2018 COMPARISON: Prior chest x-ray March 06, 2018. HISTORY: History of bronchitis with cough and chest pain. TECHNIQUE: Frontal and lateral views of the chest are obtained. FINDINGS: There is mild biapical pleural/parenchymal scarring. There is no focal air space opacity, pleural effusion, or pneumothorax seen. The cardiac silhouette size is within normal limits. Round s tructure retrocardiac region likely reflects small hiatal hernia and is stable. The osseous structur es are intact. IMPRESSION: Chronic changes without acute pulmonary process.
== END | disposition home or self-care (01) ==
LOC: RADXRMAIN 15:00
PROVIDERS: ATTEND Family Medicine
DX: R91.8 Other nonspecific abnormal finding of lung field (principal); R07.9 Chest pain, unspecified
CPT/HCPCS: 71046

== ENCOUNTER → 2018-08-29 | Outpatient (CLI) | payer OTHER ==
--- NOTE | 2018-08-29 15:04 | CT ---
EXAMINATION TYPE: CT chest w con DATE OF EXAM: 08/29/2018 COMPARISON: CTA chest May 25, 2017 HISTORY: cough, recent lung infection CT DLP: 236.4 mGycm. Automated Exposure Control for Dose Reduction was Utilized. TECHNIQUE: CT scan of the thorax is performed following with IV Contrast, patient injected with 100 mL of Isovue 300. FINDINGS: LUNGS: Mild biapical pleural/parenchymal scarring is redemonstrated. Dependent atelectasis bilateral lower lobes is seen. No suspicious focal groundglass opacity or consolidation. No pleural effusion or pneumothorax. No suspicious pulmonary nodules or masses. MEDIASTINUM: There are no greater than 1 cm hilar or mediastinal lymph nodes. No cardiomegaly or pe ricardial effusion is seen. Persistent moderate to large size hiatal hernia with some twisting. OTHER: Slight scoliotic curvature. IMPRESSION: No suspicious acute pulmonary process.
== END | disposition home or self-care (01) ==
LOC: RADCTMAIN 13:55
PROVIDERS: ATTEND Family Medicine
DX: R07.9 Chest pain, unspecified (principal)
CPT/HCPCS: 71260; Q9967

== ENCOUNTER → 2019-01-29 | Outpatient (CLI) | payer OTHER ==
--- NOTE | 2019-02-05 07:51 | USB ---
Reason for exam: clinical finding. History: Patient is postmenopausal. Took hormonal contraceptives for 10 years beginning at age 19. Indicated problem(s): pain in the left breast. Physical Findings: Nurse did not find any significant physical abnormalities on exam. US Breast LT Left complete breast ultrasound includes all four quadrants, the retroareolar region and axilla. Finding demonstrates no cystic or solid lesion seen. No suspicious sonographic finding. These results were verbally communicated with the patient on 02/04/19 ASSESSMENT: Negative, BI-RAD 1 RECOMMENDATION: Clinical management of the left breast. Manage patient on a clinical basis.
== END ==
LOC: RADUSWWP 12:43
PROVIDERS: ATTEND Family Medicine
DX: N64.4 Mastodynia (principal)

== ENCOUNTER → 2019-05-01 | Outpatient (CLI) | payer OTHER ==
--- NOTE | 2019-05-01 12:06 | XR ---
EXAMINATION TYPE: XR thoracic spine 2V DATE OF EXAM: 05/01/2019 CLINICAL HISTORY: Chronic thoracic back pain with no known injury. TECHNIQUE: Frontal, lateral, and swimmer's view of thoracic spine are obtained. COMPARISON: None. FINDINGS: Thoracic spine show satisfactory alignment without evidence of acute fracture or dislocatio n. Mild multilevel intervertebral disc space narrowing and small anterior osteophytes. Vertebral bod y are preserved. Visualized ribs are unremarkable. There is mild diffuse osseous demineralization. Frontal view demonstrates an ovoid structure overlying the inferior cardiac borders however this is n ot reproduced on the lateral view. IMPRESSION: 1. No acute fracture or malalignment is seen in the thoracic spine. 2. Ovoid structure on the frontal view only most likely relates to a hiatal hernia however CT thorax could ensure no paraspinal masses. 3. Mild multilevel degenerative disc disease of the thoracic spine and mild diffuse osseous demineral ization.
== END | disposition home or self-care (01) ==
LOC: RADXRMAIN 11:30
PROVIDERS: ATTEND Family Medicine
DX: M51.34 Other intervertebral disc degeneration, thoracic region (principal); M81.8 Other osteoporosis without current pathological fracture
CPT/HCPCS: 72070

== ENCOUNTER → 2019-09-11 | Outpatient (CLI) | payer OTHER ==
--- NOTE | 2019-09-11 13:39 | XR ---
EXAMINATION TYPE: XR thoracic spine 2V DATE OF EXAM: 09/11/2019 COMPARISON: NONE HISTORY: 05/01/2019 TECHNIQUE: 3 views submitted FINDINGS: Alignment is anatomic. There is no compression deformities curvature of the spine noted. Multilevel hypertrophic and degenerative disc disease. IMPRESSION: 1. Multilevel hypertrophic and degenerative disc disease.
[2019-09-11 14:12] LABS: Calcium 9.8 mg/dL (8.4-10.2); Potassium 4.3 mmol/L (3.5-5.1)
--- NOTE | 2019-09-11 16:12 | BD ---
EXAMINATION TYPE: Axial Bone Density DATE OF EXAM: 09/11/2019 COMPARISON: NONE CLINICAL HISTORY: 63 YR OLD FEMALE....ICD-10 CODE: N91.1 POST MENOPAUSAL Height: 64.3 Weight: 147 FRAX RISK QUESTIONS: Family History (Parent hip fracture): YES, MOTHER Current Tobacco Use: YES, STOPPED 28 YRS, ON AND OFF NOW RISK FACTORS HISTORY OF: Family History of Osteoporosis: YES, HER MOTHER WITH BOTH FEMUR FXs Diet low in dairy products/other sources of calcium: YES Postmenopausal woman: YES, AT 50 YRS OLD Take estrogen and/or progesterone medications: BCP FOR ABOUT 15+ YRS TOTAL Hyperparathyroidism: NO Adrenal Insufficiency: NO MEDICATIONS: Additional Medications: BP MEDS, CLONOPIN, REFLUX MEDS, STATIN FOR CHOLESTEROL, VIT D AND CALCIUM Additional History: HYPERTENSION, CHOLESTEROL, REFLUX EXAM MEASUREMENTS: Bone mineral densitometry was performed using the [employer]. Bone mineral density as measured about the Lumbar spine is: ----- L1-L4(G/cm2): 1.100 T Score Values are as follows: ----- L1: -1.7 ----- L2: -0.8 ----- L3: 0.4 ----- L4: -0.9 ----- L1-L4: -0.7 Bone mineral density THIS IS PATIENTS FIRST BONE DENSITY SCAN.......BASELINE STUDY Bone mineral density about the R hip (g/cm2): 0.895 Bone mineral density about the L hip (g/cm2): 0.924 T Score values are as follows: -----R Neck: -0.9 -----L Neck: -1.1 -----R Total: -0.9 -----L Total: -0.7 Bone mineral density BASELINE STUDY FRAX%s: THERE IS A 14.8% CHANCE FOR A MAJOR OSTEOPOROTIC FX AND A 0.9% FOR HIP.....PROBABILITY FOR FX IN 10 YRS TIME IMPRESSION: Osteopenia (T Score between -2.5 and -1) at femoral neck level in the left hip. There is slightly increased risk of fracture and the patient may be considered for treatment. Re-Screen 2-5 years. NOTE: T-SCORE=SD OF THE YOUNG ADULT MEAN.
== END | disposition home or self-care (01) ==
LOC: RADBDWWP 13:02
PROVIDERS: ATTEND Family Medicine
DX: M51.34 Other intervertebral disc degeneration, thoracic region (principal); M85.80 Other specified disorders of bone density and structure, unspecified site; N95.1 Menopausal and female climacteric states; I10 Essential (primary) hypertension; E78.5 Hyperlipidemia, unspecified
CPT/HCPCS: 72070; 77080; 80048; 80061

== ENCOUNTER → 2019-11-13 | Outpatient (CLI) | payer OTHER ==
--- NOTE | 2019-11-14 10:06 | CT ---
EXAMINATION TYPE: CT lumbar spine w con DATE OF EXAM: 11/13/2019 COMPARISON: None HISTORY: chronic low back pain CT DLP: 450 mGycm CONTRAST: CT scan of the lumbar is performed with IV Contrast, patient injected with 100 mL of Isovue 300. TECHNIQUE: CT of the lumbar spine is performed on a spiral scan at 3 mm thick sections. Reconstructed images are performed in the coronal and sagittal planes. FINDINGS: T10-T11: No focal disc herniation or significant disc bulge is evident. No spinal canal stenosis or neural foraminal stenosis is present. T11-T12: No focal disc herniation or significant disc bulge is evident. No spinal canal stenosis or neural foraminal stenosis is present. T12-L1: No focal disc herniation or significant disc bulge is evident. No spinal canal stenosis or neural foraminal stenosis is present. L1-L2: No focal disc herniation or significant disc bulge is evident. No spinal canal stenosis or n eural foraminal stenosis is present L2-L3: Broad-based disc bulge has anterior thecal sac contact. No AP spinal canal stenosis is present . Some moderate right foraminal narrowing is present. L3-L4: Broad-based disc bulge is present with moderate anterior thecal sac flattening. No AP spinal c anal stenosis is present. Endplate changes are present.. Moderate right foraminal narrowing is presen t. L4-L5: Mild symmetrical bulge is present with anterior thecal sac contact. No AP spinal canal stenosi s is present.. Severe right foraminal stenosis is present. Moderate to severe left foraminal narrowin g is present. L5-S1: Mild disc bulge has anterior thecal sac contact. No AP spinal canal stenosis present. Facet hy pertrophy is present. Note is made of a sclerotic area which may be a bone island within the right pe dicle of L5. Metastatic lesion could be considered.. Severe bilateral foraminal stenosis is present. Vertebral alignment appears normal. Note is made of a moderate size hiatal hernia. IMPRESSION: 1. Multilevel disc bulges with mild to moderate anterior thecal sac flattening. No stenosis is presen t. 2. Multiple areas of moderate to severe foraminal narrowing predominantly on the right. Correlate wit h radicular symptoms. 3. Probable bone island within the right L5 pedicle. The proper clinical setting, sclerotic metastasi s would not be excluded.
== END | disposition home or self-care (01) ==
LOC: RADCTMAIN 15:05
PROVIDERS: ATTEND Family Medicine
DX: M51.26 Other intervertebral disc displacement, lumbar region (principal)
CPT/HCPCS: 72132; Q9967

== ENCOUNTER → 2019-12-06 | Outpatient (CLI) | payer OTHER ==
--- NOTE | 2019-12-06 15:28 | NM ---
EXAMINATION TYPE: NM bone scan whole body DATE OF EXAM: 12/06/2019 COMPARISON: CT 11/13/2019 HISTORY: Bone island and lumbar spine Delayed whole-body scanning was performed following the injection of 23.7 mCi Tc 99m MDP. Images wer e acquired 3.25 hours post injection. FINDINGS: There is increased uptake within the posterior left mid cervical spine is nonspecific but could be re lated to degenerative change. Metastatic disease is not excluded. There is focal uptake within the right aspect of the L3-L4 level. This corresponds to abnormality on the CT examination, sclerotic metastasis should be considered at this level. No suspicious focal uptake corresponding to the suspected bone island in the right L5 pedicle is evid ent. There is increased uptake within multiple joint spaces especially through the upper extremities. Thes e appear to be degenerative in nature. IMPRESSION: 1. Uptake within the right L4 sclerotic area can be compatible with endplate injury or sclerotic meta stasis. 2. Suspicious uptake within L5 is not evident. 3. Nonspecific uptake within the posterior left cervical spine.
== END | disposition home or self-care (01) ==
LOC: RADNMMAIN 10:54
PROVIDERS: ATTEND Family Medicine
DX: M89.8X8 Other specified disorders of bone, other site (principal)
CPT/HCPCS: 78306; A9503

== ENCOUNTER → 2019-12-25 | Outpatient (CLI) | payer OTHER ==
[2019-12-25 14:05] VITALS: BP 136/88; PULSE 102; RESP 14; TEMP 98.2
--- NOTE | 2019-12-25 15:07 | P.CONS ---
History of Present Illness - Reason for Consult Consult date: 12/25/19 - Chief Complaint Mid and lower back pain - History of Present Illness This is a 64-year-old lady with history of chronic mid and lower back pain with recent exacerbation. The patient denies any radiation of the pain to the lower extremities. She does complain of severe nocturnal pain waking her up at night. She denies any weight loss recently. She also denies any bowel or bladder dysfunction. There is no paresthesia in the lower extremities. The pain gets worse with activities. She recently had computed tomography scan on the lumbar spine which showed multiple levels of moderate to severe neuroforaminal narrowing predominantly on the right side and suspicious lesion on the right L5 pedicle however the bone scan which she had afterwards showed the same suspicious lesion on the right L4 pedicle compatible with endplate injury or sclerotic metastasis. The patient was referred by her primary care physician to see an oncologist. Review of Systems Constitutional: Reports chronic pain Ears, nose, mouth and throat: Denies headache, Denies sore throat Cardiovascular: Denies chest pain, Denies shortness of breath Respiratory: Denies cough Neurological: Reports as per HPI, Denies numbness, Denies weakness Psychiatric: Reports anxiety Past Medical History Past Medical History: Hyperlipidemia, Hypertension, Osteoarthritis (OA) Additional Past Medical History / Comment(s): 3 HERNIATED LUMBAR DISC, tonsilar stones, IBS History of Any Multi-Drug Resistant Organisms: None Reported Past Surgical History: Tubal Ligation, Uterine Ablation Past Anesthesia/Blood Transfusion Reactions: No Reported Reaction Additional Past Anesthesia/Blood Transfusion Reaction / Comm: occasional trouble waking up Past Psychological History: Anxiety Smoking Status: Former smoker Past Alcohol Use History: None Reported Additional Past Alcohol Use History / Comment(s): Patient was a smoker for 19 years and quit in 1992. Past Drug Use History: None Reported - Past Family History Mother Family Medical History: Hypertension, Osteoarthritis (OA) Additional Family Medical History / Comment(s): Mother at age 78 from consultations from COPD with history of depression and generalized anxiety disorder Father Family Medical History: Cancer Additional Family Medical History / Comment(s): Father at age 50 from THROAT CA WAS HEAVY SMOKER AND DRINKER Brother(s) Family Medical History: Cancer Additional Family Medical History / Comment(s): Patient has 4 brothers and one has history of prostate cancer. Son(s) Family Medical History: Cancer Medications and Allergies Home Medications Medication Instructions Recorded Confirmed Type Pravastatin Sodium [Pravachol] 40 mg PO HS 05/25/17 12/23/19 History Multivitamin,Therapeutic [Thera] 1 tab PO DAILY 12/28/17 12/23/19 History ALPRAZolam [Xanax] 1 mg PO BID 01/10/18 12/23/19 History Losartan [Cozaar] 50 mg PO HS 01/10/18 12/23/19 History Aspirin 81 mg PO HS 12/23/19 12/23/19 History Azelastine HCl [Astepro] 2 spray NASAL BID 12/23/19 12/23/19 History HYDROcodone/APAP 10-325MG [Carman 1 tab PO Q6HR PRN 12/23/19 12/23/19 History 10-325] Losartan Potassium [Cozaar] 100 mg PO DAILY 12/23/19 12/23/19 History Mirtazapine [Remeron] 15 mg PO HS 12/23/19 12/23/19 History cloNIDine HCL [Catapres] 0.2 mg PO HS 12/23/19 12/23/19 History hydroCHLOROthiazide [Hydrodiuril] 25 mg PO DAILY 12/23/19 12/23/19 History Allergies Allergy/AdvReac Type Severity Reaction Status Date / Time No Known Allergies Allergy Verified 12/23/19 10:13 Physical Exam Vitals: Vital Signs Temp Pulse Resp BP Pulse Ox 12/25/19 13:58 98.2 F 102 H 14 136/88 96 - Constitutional General appearance: average body habitus - EENT Eyes: PERRLA - Integumentary Integumentary: no calor, no cellulitis, no cyanotic, no decreased turgor, no flushed, no jaundiced, no normal, no normal turgor, no pale, no rash, no ulcer - Neurologic Neuro exam of the lower extremities is within normal limits Postop tenderness in the lumbar paravertebral musculature. Palpation of the spinous processes and the upper lumbar lower thoracic area was painful Facet loading test positive Henok's test mildly positive bilaterally Neurologic: CNII-XII intact - Psychiatric Psychiatric: A&O x's 3, appropriate affect, intact judgment & insight Assessment and Plan Plan: This is a 64-year-old female with history of axial lower back pain with radiation to the mid thoracic spine area. The patient complains of nocturnal pain but denies any weight loss. Her computed tomography scan and bone scan test showed an area and the L4 vertebra suspicious for bony metastases. The patient is already refer to seen an oncologist. At this point I think I would like to get the oncologist to report before I proceed with any intervention pain procedures on the patient's spine. The patient will give us a call after she sees her oncologist and then we can arrange for a reevaluation visit. I thank you for the referral
== END | disposition home or self-care (01) ==
LOC: PNWHC3 13:29
PROVIDERS: ATTEND Anesthesiology
DX: M54.6 Pain in thoracic spine (principal); I10 Essential (primary) hypertension; M19.90 Unspecified osteoarthritis, unspecified site; Z79.82 Long term (current) use of aspirin; Z79.899 Other long term (current) drug therapy; Z87.891 Personal history of nicotine dependence
CPT/HCPCS: 99211

== ENCOUNTER → 2020-01-22 | Outpatient (CLI) | payer OTHER ==
--- NOTE | 2020-01-22 09:25 | MR ---
EXAMINATION TYPE: MR lumbar spine wo/w con DATE OF EXAM: 01/22/2020 COMPARISON: CT lumbar spine November 13, 2019. Whole body bone scan December 06, 2019. Older CT abdom en and pelvis study 2018. HISTORY: Bone cancer TECHNIQUE: Multiplanar, multisequence images of the lumbar spine is performed without and with IV contrast, util izing 7 mL intravenous Gadavist FINDINGS: Sagittal images of the lumbar spine show vertebral body heights to remain satisfactory. Sta ble alignment with slight grade 1 multilevel retrolisthesis L2 on L3 through the L5-S1 levels. Multil evel disc desiccation along with mild to moderate multilevel disc space narrowing and anterior spurri ng. Heterogeneous Modic type I endplate changes right L3-L4 level correspond to area of sclerosis an d increased radiotracer uptake on bone scan. This area has similar appearance on CT study 2018 day ri ng degenerative change. Nonspecific postcontrast enhancement is present. No disc enhancement is noted . The conus medullaris is normal in position and signal ending at the mid L1 level. Axial images show T12-L1 and L1-L2 level to appear within normal limits. Axial images at L2-L3 level show mild/moderate broad disc bulge mildly effacing the anterior thecal s ac, patent bilateral neural foramina. Mild facet arthropathy bilaterally. Axial images at L3-L4 level show [id number] broad disc bulge with right lateral disc protrusion component effacing anterolateral thecal sac and causing mild right-sided anterior inferior neural fo raminal narrowing. Left-sided neural foramen is patent. Mild facet arthropathy and ligament flavum hy pertrophy. Axial images at the L4-L5 level mild/moderate facet arthropathy and ligamentum flavum hypertrophy. Th ere is mild/moderate broad disc bulge mildly effacing anterior thecal sac. There is mild bilateral an teroinferior neural foraminal narrowing. Axial images at the L5-S1 level mild broad-based posterior disc protrusion causing mild right-sided i nferior neural foraminal narrowing. Spinal canal is preserved. Paraspinal muscle bulk is maintained. Prominent bone island right L5 lateral recess on CT axial image 66 is unchanged from 2018 CT without hypermetabolic uptake on bone scan. Lesion likely on postcontra st MRI axial image 5 resuming bone island. IMPRESSION: [id number] multilevel degenerative changes in lumbar spine as detailed above. Degre e of neural foraminal narrowing less prominent on MRI than suspected on recent CT. No convincing MRI evidence for osseous metastatic disease when correlating with old studies.
== END | disposition home or self-care (01) ==
LOC: RADMRIMAIN 08:02
PROVIDERS: ATTEND Internal Medicine Hematology & Oncology
DX: M48.061 Spinal stenosis, lumbar region without neurogenic claudication (principal); M47.816 Spondylosis without myelopathy or radiculopathy, lumbar region; D48.0 Neoplasm of uncertain behavior of bone and articular cartilage
CPT/HCPCS: 72158; A9585

== ENCOUNTER → 2020-01-29 | Outpatient (CLI) | payer OTHER ==
[2020-01-29 14:13] VITALS: BP 110/72; PULSE 68; RESP 18; TEMP 98.5
--- NOTE | 2020-01-30 14:42 | P.PN ---
Subjective Progress Note Date: 01/29/20 This is a follow-up visit for this 64 years old female , with a chronic history of severe low back pain, patient had the computed tomography scan of the lumbar spine that showed that she had possible metastases to the bone in the lumbar area, patient was referred to had MRI of the lumbar spine and also to follow-up with the oncologist, to evaluate if there is any need for any further diagnostic studies, she'll was seen by oncologist and he did not recommend any further diagnostics study, and patient had MRI of the lumbar spine done 01/22/2020 at [facility]'s showed that she had multilevel lumbar bulging disc disease and multilevel lumbar facet arthropathy, she continued to have se sesar low back pain which is increased with any activity is mostly axial in nature, she denies any motor or sensory deficit she denies any change in the bowel movement or urination and no fever or night sweats the pain is constant and increased with any activity Objective - Vital Signs Vital signs: Vital Signs Temp 98.5 F 01/29/20 13:53 Pulse 68 01/29/20 13:53 Resp 18 01/29/20 13:53 BP 110/72 01/29/20 13:53 Pulse Ox 97 01/29/20 13:53 - Exam Physical Examinations : -Constitutiona : Cooperative , not in acute distress . -HEENT : nech : supple , no Lymphadenopathy , normal thyroid size . : eyes : no ptosis , no icterus, no photophobia . - neurologic : Cranial nerve II to XII intact , no focal neurological deffecit . -psychatric : alert , oriented X 3 , appropriate affect , intact judgment and insight . -Lymphatic : no Lymphadenopathy . - musculoskeltal : Lumber spine moter stegnth lower extremities ,thigh and legs 5/5 Right side , 5/5 Left side deep tendon reflexes : normal Knee Jerk , normal ankle Jerk lumber facet Loading Test =positive Right , positive Left Range of motion of the lumbar spine Flexion 30 degrees, extension 10 degrees strait leg raising test = positive at 60 degree Fabere test= positive Right , and positive LT . tenderness over the Sacroiliac joint on the Right , and Left sides MRI of the lumbar spine done at the [facility] the lumbar degenerative disc disease from L2 3 L3 4 L4 5 and L5-S1 and multilevel lumbar facet arthropathy at L2-3 and L3 4 L4 5 and L5-S1 Assessment and Plan Plan: Assessment and plan=1-lumbar spondylosis with lumbar facet arthropathy without myelopathy. 2-lumbar degenerative disc disease. Patient will be good candidate to have diagnostic medial branch block lumbar area at L3, L4, L5 x2 on the proceed with RFA if she has positive results. - PQRS measures = - Patient's medications are documented in the chart. -Tobacco use is negative and counseling.Given. -Patient's has not received pneumococcal vaccine. -Advanced care planning discussed, patient not eligible. -Opiate contract signed. -Pain positive and follow-up visit/procedure is scheduled. -Patient's blood pressure measured [ 110/72 ] , and documented in the record ,and patient will follow up with the primary care. -Patient's weight was measured and body mass index [23.5 ],within the normal limits and counseling was done. and patient instructed to follow-up with the primary care physician. -Patient was not identified as an unhealthy alcohol user Time with Patient: Less than 30
== END | disposition home or self-care (01) ==
LOC: PNWHC3 13:14
PROVIDERS: ATTEND Specialist
DX: M51.36 Other intervertebral disc degeneration, lumbar region (principal); M47.816 Spondylosis without myelopathy or radiculopathy, lumbar region
CPT/HCPCS: 99211

== ENCOUNTER → 2020-02-25 | Day surgery (SDC) | payer OTHER ==
[2020-02-20 09:35] VITALS: BMI 23.8
[~2020-02-25] MED LIST changes: +IV FLUID CONTINUATION 1,000 ML IV ONE; +LACTATED RINGERS 1,000 ML IV ONE; -LACTATED RINGERS 1,000 ML IV SCH; +LIDOCAINE 1% (10MG/ML) FOR IV START INTRADERMA ONE; +MIDAZOLAM 2 MG/2 ML VIAL ONE; +ROPIVACAINE 5MG/ML 20ML VIAL ONE; +TRIAMCINOLONE ACETONIDE 40 MG/ML 1 ML VIAL ONE; +fentaNYL (PF) 50 MCG/ML 2 ML AMP ONE
[2020-02-25 09:27] VITALS: RESP 16; TEMP 97.3
--- NOTE | 2020-02-25 10:31 | P.OP ---
Date of Procedure: 02/25/20 Preoperative Diagnosis: Lumbar spondylosis without myelopathy Postoperative Diagnosis: Lumbar spondylosis without myelopathy Procedure(s) Performed: Bilateral lumbar L3-L4, L4-L5 medial branch block #1 Anesthesia: MAC Surgeon: Alok Chavis Estimated Blood Loss (ml): 0 IV fluids (ml): 100 Urine output (ml): 0 Pathology: none sent Condition: stable Disposition: PACU Description of Procedure: The patient was seen and examined. The written informed consent was obtained after explaining the risks, benefits and alternatives of the procedure to the patient. The patient was brought to the procedure room and was placed in the prone position on the operating table table. A pillow was placed under the abdomen to reduce lumbar lordosis. Standard anesthesia monitoring was done through out the procedure. The skin preparation was done with ChloraPrep, and draping was done in usual sterile fashion. Sterile technique was observed throughout the procedure. Under fluoroscopic guidance, right-sided the Lumbar 3, 4, 5 levels were identified in the AP view. For lumbar L3, L4, and L5 levels the targeting area of superior articular process, and close to the most medial and superior aspect of transverse process identified, marked. 1ml of 1% Lidocaine was used with a 25 gauge needle to achieve adequate local anesthesia of the skin and subcutaneous tissue at each level. A 25 gauge 3.5 inch spinal needle was placed and advanced targeting area which was close to the most medial and superior aspect of the transverse process. A bony contact was obtained and needle tip position was confirmed at anteroposterior view. No paresthesia was noted. A negative aspiration was confirmed. 1 ml solution per level was injected, the block solution containing 8 ml of 0.5% ropivacaine preservative-free solution mixed with 40 MG of Kenalog. The needles were removed intact. Entire procedure repeated on the left side. Lumbar area was cleaned and bandages were applied. Disposition : The patient tolerated the procedure very well. The patient was transferred to the recovery room and remained stable until discharged home. The patient was given detailed discharge instructions for infection, bleeding, and increased pain at the injection site, and was advised to seek immediate medical attention should significant side effects develop. The patient will be scheduled with Pain Clinic within 2-4 weeks for repeat procedure if it's helpful. Plan - Discharge Summary Discharge Rx Participant: No New Discharge Prescriptions: No Action Pravastatin Sodium [Pravachol] 40 mg PO HS Multivitamin,Therapeutic [Thera] 1 tab PO DAILY Losartan [Cozaar] 100 mg PO HS ALPRAZolam [Xanax] 1 mg PO BID Aspirin 81 mg PO HS hydroCHLOROthiazide [Hydrodiuril] 25 mg PO DAILY cloNIDine HCL [Catapres] 0.2 mg PO HS Mirtazapine [Remeron] 15 mg PO HS Losartan Potassium [Cozaar] 100 mg PO DAILY HYDROcodone/APAP 10-325MG [[place] 10-325] 1 tab PO Q6HR PRN PRN Reason: Pain Azelastine HCl [Astepro] 2 spray NASAL BID Atenolol [Tenormin] 50 mg PO 1600 PRN PRN Reason: elevated blood pressure Discharge Medication List Pravastatin Sodium [Pravachol] 40 mg PO HS 05/25/17 [History] Multivitamin,Therapeutic [Thera] 1 tab PO DAILY 12/28/17 [History] ALPRAZolam [Xanax] 1 mg PO BID 01/10/18 [History] Losartan [Cozaar] 100 mg PO HS 01/10/18 [History] Aspirin 81 mg PO HS 12/23/19 [History] Azelastine HCl [Astepro] 2 spray NASAL BID 12/23/19 [History] HYDROcodone/APAP 10-325MG [[place] 10-325] 1 tab PO Q6HR PRN 12/23/19 [History] Losartan Potassium [Cozaar] 100 mg PO DAILY 12/23/19 [History] Mirtazapine [Remeron] 15 mg PO HS 12/23/19 [History] cloNIDine HCL [Catapres] 0.2 mg PO HS 12/23/19 [History] hydroCHLOROthiazide [Hydrodiuril] 25 mg PO DAILY 12/23/19 [History] Atenolol [Tenormin] 50 mg PO 1600 PRN 02/20/20 [History] Discharge/Stand Alone Forms: [facility] Diary, [facility] Instructions
[2020-02-25 10:54] VITALS: BP 138/83; PULSE 65
--- NOTE | 2020-02-25 11:04 | FL ---
Fluoroscopy INDICATION: Pain FINDINGS: Fluoroscopy time: 7 seconds. Images obtained: 2. IMPRESSIONS: 1. Documentation of fluoroscopy.
== END ==
LOC: ORPAIN 08:44
DX: M47.816 Spondylosis without myelopathy or radiculopathy, lumbar region (principal); Z79.82 Long term (current) use of aspirin; Z79.899 Other long term (current) drug therapy
CPT/HCPCS: 64493; 64494; J2250; J3301; J3010; J2795; 99152

== ENCOUNTER → 2020-06-15 | Outpatient (CLI) | payer OTHER ==
--- NOTE | 2020-06-15 15:18 | CT ---
EXAMINATION TYPE: CT brain w con DATE OF EXAM: 06/15/2020 COMPARISON: None. HISTORY: Chronic headaches. CT DLP: 1012.7 mGycm Automated exposure control for dose reduction was used. CONTRAST: CT scan of the head is performed with IV Contrast, patient injected with 100ml mL of Isovue 300. FINDINGS: There is no abnormal enhancing mass or midline shift identified. The ventricles and sulci are within normal limits in size for patient's age. Carbajal-white matter differentiation is maintained. The globes are intact and the visualized sinuses are clear. IMPRESSION: Unremarkable study.
== END | disposition home or self-care (01) ==
LOC: RADCTMAIN 14:46
PROVIDERS: ATTEND Family Medicine
DX: R51.9 Headache, unspecified (principal)
CPT/HCPCS: 70460; Q9967

== ENCOUNTER → 2020-07-03 | Outpatient (CLI) | payer OTHER ==
[2020-07-03 20:34] LABS: Basophils # (A) 0.04 X 10*3/uL (0.00-0.10); Basophils % (A) 0.4 %; Eosinophils # (A) 0.01 X 10*3/uL (0.04-0.35); Eosinophils % (A) 0.1 %; HGB 15.8 g/dL (12.0-15.0); Lymphocytes # (A) 0.94 X 10*3/uL (0.90-5.00); Lymphocytes % (A) 8.3 %; MCH 30.2 pg (27.0-32.0); MCHC 34.3 g/dL (32.0-37.0); Mean Platelet Volume 9.6 fL (9.5-12.2); Monocytes # (A) 0.72 X 10*3/uL (0.20-1.00); Monocytes % (A) 6.4 %; Neutrophils # (A) 9.52 X 10*3/uL (1.80-7.70); Neutrophils % (A) 84.4 %; Platelet Count 343 X 10*3/uL (140-440); RBC 5.23 X 10*6/uL (4.10-5.20); WBC 11.27 X 10*3/uL (4.50-10.00)
[2020-07-03 21:44] LABS: % Iron Saturation 7.3 (12.00-45.00)
[2020-07-03 21:45] LABS: Ferritin 77.1 ng/mL (10.0-291.0); T4, Free (Free Thyroxine) 1.4 ng/dL (0.80-1.80)
== END | disposition home or self-care (01) ==
LOC: LABWHC1 13:31
PROVIDERS: ATTEND Physician Assistant
DX: D22.9 Melanocytic nevi, unspecified (principal); D23.60 Other benign neoplasm of skin of unspecified upper limb, including shoulder; L65.9 Nonscarring hair loss, unspecified; L81.8 Other specified disorders of pigmentation; L82.1 Other seborrheic keratosis
CPT/HCPCS: 36415; 82306; 82626; 82728; 83540; 83550; 84402; 84403; 84439; 84443; 84630; 85025; 86038

== ENCOUNTER → 2020-08-06 | Outpatient (CLI) | payer OTHER ==
[2020-08-06 20:05] LABS: Basophils # (A) 0.05 X 10*3/uL (0.00-0.10); Basophils % (A) 0.7 %; Eosinophils # (A) 0.06 X 10*3/uL (0.04-0.35); Eosinophils % (A) 0.8 %; HCT 43.8 % (37.2-46.3); HGB 14.7 g/dL (12.0-15.0); Lymphocytes # (A) 2.16 X 10*3/uL (0.90-5.00); Lymphocytes % (A) 30.3 %; MCH 29.8 pg (27.0-32.0); MCHC 33.6 g/dL (32.0-37.0); MCV 88.8 fL (80.0-97.0); Mean Platelet Volume 9.8 fL (9.5-12.2); Monocytes # (A) 0.45 X 10*3/uL (0.20-1.00); Monocytes % (A) 6.3 %; Neutrophils # (A) 4.38 X 10*3/uL (1.80-7.70); Neutrophils % (A) 61.6 %; Platelet Count 369 X 10*3/uL (140-440); RBC 4.93 X 10*6/uL (4.10-5.20); RDW 12.8 % (11.5-14.5); WBC 7.12 X 10*3/uL (4.50-10.00)
[2020-08-06 22:43] LABS: Ferritin 72.6 ng/mL (10.0-291.0); T4, Free (Free Thyroxine) 1.3 ng/dL (0.80-1.80)
[2020-08-06 22:47] LABS: % Iron Saturation 21.62 (12.00-45.00)
[2020-08-07 03:33] LABS: DHEA Sulfate 36.9 ug/dL (26.0-430.0)
== END | disposition home or self-care (01) ==
LOC: LABWHC1 14:03
PROVIDERS: ATTEND Physician Assistant
DX: D23.60 Other benign neoplasm of skin of unspecified upper limb, including shoulder (principal); D22.9 Melanocytic nevi, unspecified; L82.1 Other seborrheic keratosis; L81.8 Other specified disorders of pigmentation; L65.9 Nonscarring hair loss, unspecified
CPT/HCPCS: 36415; 82306; 82627; 82728; 83540; 83550; 84402; 84403; 84439; 84443; 84630; 85025; 86038

== ENCOUNTER 2020-09-06 07:59 | Observation (INO) | payer OTHER ==
[2020-09-06] MEDS ORDERED: ASPIRIN 81 MG PO STA (08:19)
[2020-09-06] MEDS ORDERED: NITROGLYCERIN OINT 1 INCH/GM PACKET TOPICAL STA (08:19)
--- NOTE | 2020-09-06 08:21 | ED ---
General Adult HPI - General Chief complaint: Chest Pain Stated complaint: Chest Pain Time Seen by Provider: 09/06/20 08:04 Source: patient, RN notes reviewed Mode of arrival: wheelchair Limitations: no limitations - History of Present Illness Initial comments: Patient is a pleasant 64-year-old female presenting to the emergency Department with complaints of chest discomfort. Onset of symptoms was a couple of days ago. Discomfort feels like tightness. Discomfort is currently mild. Patient does have associated sweating. No nausea or dyspnea. No radiation of discomfort. Patient unclear if she has a history of similar symptoms previously. - Related Data Home Medications Medication Instructions Recorded Confirmed Pravastatin Sodium [Pravachol] 40 mg PO HS 05/25/17 02/20/20 Multivitamin,Therapeutic [Thera] 1 tab PO DAILY 12/28/17 02/25/20 ALPRAZolam [Xanax] 1 mg PO BID 01/10/18 02/20/20 Losartan [Cozaar] 100 mg PO HS 01/10/18 02/25/20 Aspirin 81 mg PO HS 12/23/19 02/25/20 Azelastine HCl [Astepro] 2 spray NASAL BID 12/23/19 02/25/20 HYDROcodone/APAP 10-325MG [[place] 1 tab PO Q6HR PRN 12/23/19 02/25/20 10-325] Losartan Potassium [Cozaar] 100 mg PO DAILY 12/23/19 02/20/20 Mirtazapine [Remeron] 15 mg PO HS 12/23/19 02/20/20 cloNIDine HCL [Catapres] 0.2 mg PO HS 12/23/19 02/20/20 hydroCHLOROthiazide [Hydrodiuril] 25 mg PO DAILY 12/23/19 02/20/20 Atenolol [Tenormin] 50 mg PO 1600 PRN 02/20/20 02/25/20 Allergies Allergy/AdvReac Type Severity Reaction Status Date / Time clindamycin Allergy Unknown Verified 09/06/20 08:03 metronidazole [From Flagyl] Allergy Unknown Verified 09/06/20 08:03 Review of Systems ROS Statement: Those systems with pertinent positive or pertinent negative responses have been documented in the HPI. ROS Other: All systems not noted in ROS Statement are negative. Constitutional: Denies: fever Eyes: Denies: eye pain ENT: Denies: ear pain Respiratory: Denies: cough Cardiovascular: Reports: as per HPI, chest pain Endocrine: Denies: fatigue Gastrointestinal: Denies: abdominal pain Genitourinary: Denies: dysuria Musculoskeletal: Denies: back pain Skin: Denies: rash Neurological: Denies: weakness Past Medical History Past Medical History: Hyperlipidemia, Hypertension, Osteoarthritis (OA) Additional Past Medical History / Comment(s): 3 HERNIATED LUMBAR DISC, tonsilar stones, resolving bronchitis-finished antibiotic History of Any Multi-Drug Resistant Organisms: None Reported Past Surgical History: Tubal Ligation, Uterine Ablation Past Anesthesia/Blood Transfusion Reactions: No Reported Reaction Past Psychological History: Anxiety Smoking Status: Former smoker Past Alcohol Use History: None Reported Past Drug Use History: None Reported - Past Family History Mother Family Medical History: Hypertension, Osteoarthritis (OA) Additional Family Medical History / Comment(s): Mother at age 78 from consultations from COPD with history of depression and generalized anxiety disorder Father Family Medical History: Cancer Additional Family Medical History / Comment(s): Father at age 50 from THROAT CA WAS HEAVY SMOKER AND DRINKER Brother(s) Family Medical History: Cancer Additional Family Medical History / Comment(s): Patient has 4 brothers and one has history of prostate cancer. Son(s) Family Medical History: Cancer General Exam Limitations: no limitations General appearance: alert, in no apparent distress Head exam: Present: normocephalic Eye exam: Present: normal appearance Neck exam: Present: normal inspection Respiratory exam: Present: normal lung sounds bilaterally. Absent: chest wall tenderness Cardiovascular Exam: Present: regular rate, normal rhythm Expanded Peripheral pulses: 2+: Radial (R), Radial (L), Dorsalis Pedis (R), Dorsalis Pedis (L) GI/Abdominal exam: Present: soft. Absent: tenderness Extremities exam: Present: normal inspection. Absent: pedal edema, calf tenderness Neurological exam: Present: alert Psychiatric exam: Present: normal affect, normal mood Skin exam: Present: normal color Course Vital Signs 09/06/20 09/06/20 08:00 08:35 Temperature 98.0 F Pulse Rate 63 61 Respiratory 18 Rate Blood Pressure 162/78 127/80 O2 Sat by Pulse 97 Oximetry EKG Findings - EKG Comments: EKG Findings:: Since bradycardia with a rate of 56. PA 156. QRS 86. QT 438. QTC 422. Normal axis. Septal Q waves. No acute ST change. Medical Decision Making - Medical Decision Making Patient reevaluated and resting comfortably in bed. Patient and family updated on results and plan. Dr. Maldonado has been paged for admission of his patient. - Lab Data Result diagrams: 09/06/20 08:23 09/06/20 08:23 Lab Results 09/06/20 09/06/20 09/06/20 Range/Units 08:23 08:23 08:23 WBC 7.3 (3.8-10.6) k/uL RBC 5.12 (3.80-5.40) m/uL Hgb 15.9 (11.4-16.0) gm/dL Hct 45.4 (34.0-46.0) % MCV 88.8 (80.0-100.0) fL MCH 31.1 (25.0-35.0) pg MCHC 35.0 (31.0-37.0) g/dL RDW 13.3 (11.5-15.5) % Plt Count 391 (150-450) k/uL MPV 6.7 Neutrophils % 66 % Lymphocytes % 23 % Monocytes % 6 % Eosinophils % 2 % Basophils % 1 % Neutrophils # 4.9 (1.3-7.7) k/uL Lymphocytes # 1.7 (1.0-4.8) k/uL Monocytes # 0.4 (0-1.0) k/uL Eosinophils # 0.1 (0-0.7) k/uL Basophils # 0.1 (0-0.2) k/uL PT 10.5 (9.0-12.0) sec INR 1.0 (<1.2) APTT 22.8 (22.0-30.0) sec Sodium 136 L (137-145) mmol/L Potassium 3.6 (3.5-5.1) mmol/L Chloride 99 (98-107) mmol/L Carbon Dioxide 29 (22-30) mmol/L Anion Gap 8 mmol/L BUN 16 (7-17) mg/dL Creatinine 0.74 (0.52-1.04) mg/dL Est GFR (CKD-EPI)AfAm >90 (>60 ml/min/1.73 sqM) Est GFR (CKD-EPI)NonAf 88 (>60 ml/min/1.73 sqM) Glucose 134 H (74-99) mg/dL Calcium 10.0 (8.4-10.2) mg/dL Magnesium 2.3 (1.6-2.3) mg/dL Total Bilirubin 0.6 (0.2-1.3) mg/dL AST 45 H (14-36) U/L ALT 43 H (4-34) U/L Alkaline Phosphatase 74 (38-126) U/L Troponin I (0.000-0.034) ng/mL Total Protein 7.4 (6.3-8.2) g/dL Albumin 4.6 (3.5-5.0) g/dL 09/06/20 Range/Units 08:23 WBC (3.8-10.6) k/uL RBC (3.80-5.40) m/uL Hgb (11.4-16.0) gm/dL Hct (34.0-46.0) % MCV (80.0-100.0) fL MCH (25.0-35.0) pg MCHC (31.0-37.0) g/dL RDW (11.5-15.5) % Plt Count (150-450) k/uL MPV Neutrophils % % Lymphocytes % % Monocytes % % Eosinophils % % Basophils % % Neutrophils # (1.3-7.7) k/uL Lymphocytes # (1.0-4.8) k/uL Monocytes # (0-1.0) k/uL Eosinophils # (0-0.7) k/uL Basophils # (0-0.2) k/uL PT (9.0-12.0) sec INR (<1.2) APTT (22.0-30.0) sec Sodium (137-145) mmol/L Potassium (3.5-5.1) mmol/L Chloride (98-107) mmol/L Carbon Dioxide (22-30) mmol/L Anion Gap mmol/L BUN (7-17) mg/dL Creatinine (0.52-1.04) mg/dL Est GFR (CKD-EPI)AfAm (>60 ml/min/1.73 sqM) Est GFR (CKD-EPI)NonAf (>60 ml/min/1.73 sqM) Glucose (74-99) mg/dL Calcium (8.4-10.2) mg/dL Magnesium (1.6-2.3) mg/dL Total Bilirubin (0.2-1.3) mg/dL AST (14-36) U/L ALT (4-34) U/L Alkaline Phosphatase (38-126) U/L Troponin I <0.012 (0.000-0.034) ng/mL Total Protein (6.3-8.2) g/dL Albumin (3.5-5.0) g/dL - Radiology Data Radiology results: image reviewed (Chest x-ray shows no acute process) Disposition Clinical Impression: Chest pain Disposition: ADMITTED IP TO THIS HOSP Is patient prescribed a controlled substance at d/c from ED?: No Referrals: Kush Mccord MD [Primary Care Provider] - 1-2 days Decision Time: 09:18
[2020-09-06 08:35] LABS: Basophils # (A) 0.1 k/uL (0-0.2); Basophils % (A) 1 %; Eosinophils # (A) 0.1 k/uL (0-0.7); Eosinophils % (A) 2 %; HCT 45.4 % (34.0-46.0); HGB 15.9 gm/dL (11.4-16.0); Lymphocytes # (A) 1.7 k/uL (1.0-4.8); Lymphocytes % (A) 23 %; MCH 31.1 pg (25.0-35.0); MCV 88.8 fL (80.0-100.0); Mean Platelet Volume 6.7; Monocytes # (A) 0.4 k/uL (0-1.0); Monocytes % (A) 6 %; Neutrophils # (A) 4.9 k/uL (1.3-7.7); Neutrophils % (A) 66 %; Platelet Count 391 k/uL (150-450); RBC 5.12 m/uL (3.80-5.40); RDW 13.3 % (11.5-15.5); WBC 7.3 k/uL (3.8-10.6)
--- NOTE | 2020-09-06 08:42 | XR ---
EXAMINATION TYPE: XR chest 2V DATE OF EXAM: 09/06/2020 COMPARISON: 06/28/2018 INDICATION: Chest tightness discomfort TECHNIQUE: Frontal and lateral views of the chest are obtained. FINDINGS: The heart size is normal. The pulmonary vasculature is normal. The lungs are clear. IMPRESSION: 1. No acute pulmonary process.
[2020-09-06 08:46] LABS: ALT 43 U/L (4-34); AST 45 U/L (14-36); African American GFR (CKD) >90 (>60 ml/min/1.73 sqM); Albumin 4.6 g/dL (3.5-5.0); Alkaline Phosphatase 74 U/L (38-126); Anion Gap 8 mmol/L; Blood Urea Nitrogen 16 mg/dL (7-17); Carbon Dioxide 29 mmol/L (22-30); Chloride 99 mmol/L (98-107); Glucose 134 mg/dL (74-99); Magnesium 2.3 mg/dL (1.6-2.3); Non-African American GFR(CKD) 88 (>60 ml/min/1.73 sqM); Potassium 3.6 mmol/L (3.5-5.1); Sodium 136 mmol/L (137-145); Total Bilirubin 0.6 mg/dL (0.2-1.3); Total Protein 7.4 g/dL (6.3-8.2)
[2020-09-06 08:48] LABS: Partial Thromboplastin Time 22.8 sec (22.0-30.0); Prothrombin Time 10.5 sec (9.0-12.0)
[2020-09-06] MEDS ORDERED: NITROGLYCERIN SL TABS 0.4 MG TAB SUBLINGUAL PRN (09:18)
[2020-09-06] MEDS ORDERED: DIPHENOX-ATROP 2.5-0.025 MG 1 EACH TAB PO PRN (11:34)
[2020-09-06] MEDS ORDERED: PANTOPRAZOLE 40 MG TABLET PO SCH (12:00)
[2020-09-06] MEDS: NITROGLYCERIN OINT 1 INCH/GM PACKET TOPICAL SCH ×2 (13:33→18:17)
[2020-09-06] MEDS: AZELASTINE 137MCG/SPRAY NASAL SCH ×2 (13:37→21:28)
[2020-09-06] MEDS: CLOBETASOL PROP 0.05% OINT 15GM TOPICAL SCH ×2 (13:39→22:01)
[2020-09-06] MEDS: cloNIDine HCL 0.1 MG TAB PO SCH ×2 (13:39→20:24)
[2020-09-06] MEDS: DICYCLOMINE 10 MG CAP PO SCH ×3 (13:42→20:23)
[2020-09-06] MEDS: HYDROcodone/APAP 10-325MG 1 EACH TAB PO SCH ×2 (14:03→20:22)
[2020-09-06] MEDS: MULTIVITAMINS, THERA 1 EACH TAB PO SCH (14:04)
[2020-09-06] MEDS: clonazePAM 1 MG TAB PO SCH ×2 (14:06→20:23)
[2020-09-06] MEDS: CEPHALEXIN 500 MG CAP PO SCH ×2 (15:10→20:23)
--- NOTE | 2020-09-06 16:07 | P.HPIM ---
History of Present Illness H&P Date: 09/06/20 Chief Complaint: Chest tightness History of presenting complaint: This is a very pleasant 64-year-old patient of Dr. Kush Mccord. Chronic stable medical conditions include hypertension, hyperlipidemia, 3 herniated disc in the lumbar spine,. Patient is accompanied by her in the room. 2 nights ago patient has had at least 3 episodes of chest tightness central of the patient. Patient was drenched in sweat. She also had palpitations. Present off and on. No dizziness or lightheadedness. Patient also has had excessive reflux symptoms and her family doctor's trouble getting). GI for endoscopy. Patient is reasonably active and able to carry out her chores without any symptoms. 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 For blood pressure. Currently no chest pain Review of systems: GEN.: None EYES: None HEENT: None NECK: None RESPIRATORY: None CARDIOVASCULAR: As above GASTROINTESTINAL: Heartburn GENITOURINARY: None MUSCULOSKELETAL: Joint pains LYMPHATICS: None HEMATOLOGICAL: None PSYCHIATRY: None NEUROLOGICAL: None Past medical history to include: Hypertension, hyperlipidemia, lumbar disc herniation, osteoarthritis, anxiety Social history: . No alcohol. Patient smoked for 19 years stopped in 1992. Family history: Mother had COPD, depression, anxiety. Family history of hypertension osteoarthritis Physical examination: VITAL SIGNS: 98.6, 65, 18, 111/74, 99% room air GENERAL: BMI 23.2, reclining in bed, comfortable, awake. EYES: Pupils equal. Conjunctiva normal. HEENT: External appearance of nose and ears normal, oral cavity grossly normal. NECK: JVD not raised; masses not palpable. HEART: First and second heart sounds are normal; no edema. LUNGS: Respiratory rate normal; clear to auscultation. ABDOMEN: Soft, nontender, liver spleen not palpable, no masses palpable. PSYCH: Alert and oriented x3; mood and affect normal. NEUROLOGICAL: Cranial nerves grossly intact; no facial asymmetry, power and sensation grossly intact. LYMPHATICS: No lymph nodes palpable in the axilla and neck INVESTIGATIONS, reviewed in the clinical context: WBC 7.3 hemoglobin 15.9 platelets 391 potassium 3.6 creatinine 0.74 Troponin I 3 negative EKG tracing personally reviewed by me-normal sinus rhythm, poor LV progression Chest x-ray film personally reviewed by me-lungs clear Assessment and plan: -Possible unstable angina in the patient's cardiac risk factors include hypertension, hyperlipidemia, postmenopausal, ex-smoker. Troponin is negative. Nonspecific EKG changes. Cartilage consulted. Patient on aspirin, beta shad, Nitropaste -Essential hypertension Patient on Catapres, losartan, Tenormin -Hyperlipidemia On Pravachol -Primary osteoarthritis Pain medications as needed -Anxiety disorder not otherwise specified Klonopin Care was discussed with the patient and at the bedside. Home medications resumed. Telemetry. Cardiology consulted. Past Medical History Past Medical History: Hyperlipidemia, Hypertension, Osteoarthritis (OA) Additional Past Medical History / Comment(s): 3 HERNIATED LUMBAR DISC, tonsilar stones, resolving bronchitis-finished antibiotic History of Any Multi-Drug Resistant Organisms: None Reported Past Surgical History: Tubal Ligation, Uterine Ablation Past Anesthesia/Blood Transfusion Reactions: No Reported Reaction Past Psychological History: Anxiety Smoking Status: Former smoker Past Alcohol Use History: None Reported Additional Past Alcohol Use History / Comment(s): Patient was a smoker for 19 years and quit in 1992. Past Drug Use History: None Reported - Past Family History Mother Family Medical History: Hypertension, Osteoarthritis (OA) Additional Family Medical History / Comment(s): Mother at age 78 from consultations from COPD with history of depression and generalized anxiety disorder Father Family Medical History: Cancer Additional Family Medical History / Comment(s): Father at age 50 from THROAT CA WAS HEAVY SMOKER AND DRINKER Brother(s) Family Medical History: Cancer Additional Family Medical History / Comment(s): Patient has 4 brothers and one has history of prostate cancer. Son(s) Family Medical History: Cancer Medications and Allergies Home Medications Medication Instructions Recorded Confirmed Type Pravastatin Sodium [Pravachol] 40 mg PO HS 05/25/17 09/06/20 History Multivitamin,Therapeutic [Thera] 1 tab PO DAILY 12/28/17 09/06/20 History Aspirin 81 mg PO HS 12/23/19 09/06/20 History Azelastine HCl [Astepro] 2 spray NASAL BID 12/23/19 09/06/20 History HYDROcodone/APAP 10-325MG [[place] 1 tab PO BID 12/23/19 09/06/20 History 10-325] cloNIDine HCL [Catapres] 0.1 mg PO BID 12/23/19 09/06/20 History hydroCHLOROthiazide [Hydrodiuril] 25 mg PO DAILY 12/23/19 09/06/20 History Atenolol [Tenormin] 75 mg PO HS 02/20/20 09/06/20 History Cetirizine HCl [Zyrtec] 10 mg PO DAILY 09/06/20 09/06/20 History Clobetasol Propionate [Temovate 1 applic TOPICAL BID 09/06/20 09/06/20 History 0.05% Oint] Dicyclomine [Bentyl] 10 mg PO QID 09/06/20 09/06/20 History Diphenox-Atrop 2.5-0.025 mg 1 tab PO 5XD PRN 09/06/20 09/06/20 History [Lomotil] Estradiol Cream [Estrace Cream 1 gm VAGINAL WESA 09/06/20 09/06/20 History 0.01%] Losartan Potassium 100 mg PO DAILY 09/06/20 09/06/20 History Omeprazole 20 mg PO BID@1200,2100 09/06/20 09/06/20 History cloNIDine HCL [Catapres] 0.1 mg PO DAILY@1200 PRN 09/06/20 09/06/20 History clonazePAM [KlonoPIN] 1 mg PO BID 09/06/20 09/06/20 History Allergies Allergy/AdvReac Type Severity Reaction Status Date / Time clindamycin Allergy Unknown Verified 09/06/20 10:16 metronidazole [From Flagyl] Allergy Unknown Verified 09/06/20 10:16 Physical Exam Vitals: Vital Signs Temp Pulse Resp BP Pulse Ox 09/06/20 09:39 98.6 F 65 18 111/74 99 09/06/20 08:35 61 127/80 09/06/20 08:00 98.0 F 63 18 162/78 97 Intake and Output 09/05/20 09/06/20 09/06/20 22:59 06:59 14:59 Other: Weight 65.317 kg Results CBC & Chem 7: 09/06/20 08:23 09/06/20 08:23 Labs: Abnormal Lab Results - Last 24 Hours (Table) 09/06/20 Range/Units 08:23 Sodium 136 L (137-145) mmol/L Glucose 134 H (74-99) mg/dL AST 45 H (14-36) U/L ALT 43 H (4-34) U/L Thrombosis Risk Factor Assmnt - Choose All That Apply Any of the Below Risk Factors Present?: Yes Each Factor Represents 1 point: Age 41-60 years Other Risk Factors: No Other congenital or acquired thrombophilia - If yes, enter type in comment: No Thrombosis Risk Factor Assessment Total Risk Factor Score: 1 Thrombosis Risk Factor Assessment Level: Low Risk
[2020-09-06 17:07] LABS: Appearance,Urine Clear (Clear); Bilirubin,Urine Negative (Negative); Blood,Urine Negative (Negative); Color,Urine Light Yellow; Glucose,Urine (UA) Negative (Negative); Ketones,Urine Negative (Negative); Leukocyte Esterase,Urine Negative (Negative); Nitrite,Urine Negative (Negative); Protein,Urine Negative (Negative); Specific Gravity,Urine 1.009 (1.001-1.035); Urobilinogen,Urine <2.0 mg/dL (<2.0)
[2020-09-06] MEDS: PANTOPRAZOLE 40 MG TABLET PO SCH (18:17)
[2020-09-06] MEDS ORDERED: PRAVASTATIN SODIUM 40 MG TAB PO SCH (21:00)
[2020-09-06] MEDS ORDERED: atenoloL 25 MG TAB PO SCH (21:00)
[2020-09-07] MEDS: NITROGLYCERIN OINT 1 INCH/GM PACKET TOPICAL SCH ×2 (00:11→05:02)
[2020-09-07] MEDS: cloNIDine HCL 0.1 MG TAB PO SCH (08:14)
[2020-09-07] MEDS: PANTOPRAZOLE 40 MG TABLET PO SCH ×2 (08:16→17:18)
[2020-09-07] MEDS: DICYCLOMINE 10 MG CAP PO SCH ×3 (08:16→17:19)
[2020-09-07] MEDS: CEPHALEXIN 500 MG CAP PO SCH ×2 (08:16→17:18)
[2020-09-07] MEDS: MULTIVITAMINS, THERA 1 EACH TAB PO SCH (08:17)
[2020-09-07] MEDS: HYDROcodone/APAP 10-325MG 1 EACH TAB PO SCH (08:17)
[2020-09-07] MEDS: clonazePAM 1 MG TAB PO SCH (08:19)
[2020-09-07] MEDS: AZELASTINE 137MCG/SPRAY NASAL SCH (08:19)
[2020-09-07] MEDS ORDERED: ASPIRIN 325 MG TAB PO SCH (09:00)
[2020-09-07] MEDS ORDERED: DOBUTamine DRIP for NUC MED 500 MG in DEXTROSE/WATER 1 250ML.BAG IV PRN (09:20)
--- NOTE | 2020-09-07 10:19 | P.CRDCN ---
History of Present Illness History of present illness: HISTORY OF PRESENTING ILLNESS This is a pleasant 64-year-old female past medical history significant for hypertension, dyslipidemia and anxiety. She follows in the office with Dr. Mejia. We have been asked to see in consultation for chest pain. She states over the previous couple of days she has been experiencing intermittent episodes of chest tightness and palpitations. The symptoms have woken her from her sleep. There are no specific aggravating factors she can determine. She was recently treated for laryngitis and continues to be on oral antibiotics. She states the discomfort in the chest feels tight and squeezing and is very brief in nature lasting less then a few seconds each time it happens. The palpitations occur shortly thereafter and feel like a rapid heart racing. This also is very brief in nature. She has had no further symptoms of chest discomfo rt or palpitations since arriving at the hospital. DIAGNOSTICS EKG reveals sinus mechanism with poor R-wave progression, consistent with previous EKGs. No acute changes. Telemetry tracings indicate sinus mechanism with no acute arrhythmia. Chest xray negative for an acute cardiopulmonary process. Laboratory reviewed, CBC unremarkable, sodium 136, potassium 3.6, creatinine 0.74, magnesium 2.3, cardiac enzymes negative 3. Current cardiac medications include hydrochlorothiazide 25 mg daily, clonidine 0.1 mg twice a day with an additional dose at noon time of her blood pressure is elevated, pravastatin 40 mg daily, losartan 100 mg daily, atenolol 75 mg at bedtime and aspirin 81 mg daily. REVIEW OF SYSTEMS At the time of my exam: CONSTITUTIONAL: Denies fever or chills. CARDIOVASCULAR: Denies chest pain, shortness of breath, orthopnea, PND or palpitations. RESPIRATORY: Denies cough. GASTROINTESTINAL: Denies abdominal pain, diarrhea, constipation, nausea or vomiting. MUSCULOSKELETAL: Denies myalgias. NEUROLOGIC: Denies numbness, tingling, headacbe or weakness. ENDOCRINE: Denies fatigue, weight change, polydipsia or polyurina. GENITOURINARY: Denies burning, hematuria or urgency with micturation. HEMATOLOGIC: Denies history of anemia or bleeding. PHYSICAL EXAMINATION Blood pressure 125/80 heart rate 71 afebrile and maintaining oxygen saturation on room air. CONSTITUTIONAL: No apparent distress. HEENT: Head is normocephalic. Pupils are equal, round. Sclerae anicteric. Mucous membranes of the mouth are moist. No JVD. No carotid bruit. CHEST EXAMINATION: Lungs are clear to auscultation. No chest wall tenderness is noted on palpation or with deep breathing. HEART EXAMINATION: Regular rate and rhythm. S1, S2 heard. Soft systolic ejection murmur at the base, no gallops or rub. ABDOMEN: Soft, nontender. Positive bowel sounds. EXTREMITIES: 2+ peripheral pulses, no lower extremity edema and no calf tenderness. NEUROLOGIC EXAMINATION: Patient is awake, alert and oriented x3. ASSESSMENT Chest pain and palpitations Hypertension Anxiety PLAN An acute coronary event has been ruled out. Pain is atypical for angina. Obtain dobutamine stress echo to assess for stress induced ischemia. If stress test is normal she may be discharged from a cardiac perspective, follow-up with Dr. Mejia for further outpatient monitoring of palpitations. Thank you kindly for this consultation. Nurse Practitioner note has been reviewed, I agree with a documented findings and plan of care. Patient was seen and examined. Past Medical History Past Medical History: Hyperlipidemia, Hypertension, Osteoarthritis (OA) Additional Past Medical History / Comment(s): 3 HERNIATED LUMBAR DISC, tonsilar stones, resolving bronchitis-finished antibiotic History of Any Multi-Drug Resistant Organisms: None Reported Past Surgical History: Tubal Ligation, Uterine Ablation Past Anesthesia/Blood Transfusion Reactions: No Reported Reaction Past Psychological History: Anxiety Smoking Status: Former smoker Past Alcohol Use History: None Reported Additional Past Alcohol Use History / Comment(s): Patient was a smoker for 19 years and quit in 1992. Past Drug Use History: None Reported - Past Family History Mother Family Medical History: Hypertension, Osteoarthritis (OA) Additional Family Medical History / Comment(s): Mother at age 78 from con sultations from COPD with history of depression and generalized anxiety disorder Father Family Medical History: Cancer Additional Family Medical History / Comment(s): Father at age 50 from THROAT CA WAS HEAVY SMOKER AND DRINKER Brother(s) Family Medical History: Cancer Additional Family Medical History / Comment(s): Patient has 4 brothers and one has history of prostate cancer. Son(s) Family Medical History: Cancer Medications and Allergies Home Medications Medication Instructions Recorded Confirmed Type Pravastatin Sodium [Pravachol] 40 mg PO HS 05/25/17 09/06/20 History Multivitamin,Therapeutic [Thera] 1 tab PO DAILY 12/28/17 09/06/20 History Aspirin 81 mg PO HS 12/23/19 09/06/20 History Azelastine HCl [Astepro] 2 spray NASAL BID 12/23/19 09/06/20 History HYDROcodone/APAP 10-325MG [[place] 1 tab PO BID 12/23/19 09/06/20 History 10-325] cloNIDine HCL [Catapres] 0.1 mg PO BID 12/23/19 09/06/20 History hydroCHLOROthiazide [Hydrodiuril] 25 mg PO DAILY 12/23/19 09/06/20 History Atenolol [Tenormin] 75 mg PO HS 02/20/20 09/06/20 History Cetirizine HCl [Zyrtec] 10 mg PO DAILY 09/06/20 09/06/20 History Clobetasol Propionate [Temovate 1 applic TOPICAL BID 09/06/20 09/06/20 History 0.05% Oint] Dicyclomine [Bentyl] 10 mg PO QID 09/06/20 09/06/20 History Diphenox-Atrop 2.5-0.025 mg 1 tab PO 5XD PRN 09/06/20 09/06/20 History [Lomotil] Estradiol Cream [Estrace Cream 1 gm VAGINAL WESA 09/06/20 09/06/20 History 0.01%] Losartan Potassium 100 mg PO DAILY 09/06/20 09/06/20 History Omeprazole 20 mg PO BID@1200,2100 09/06/20 09/06/20 History cloNIDine HCL [Catapres] 0.1 mg PO DAILY@1200 PRN 09/06/20 09/06/20 History clonazePAM [KlonoPIN] 1 mg PO BID 09/06/20 09/06/20 History Allergies Allergy/AdvReac Type Severity Reaction Status Date / Time clindamycin Allergy Unknown Verified 09/06/20 10:16 metronidazole [From Flagyl] Allergy Unknown Verified 09/06/20 10:16 Physical Exam Vitals: Vital Signs Temp Pulse Pulse Resp BP BP Pulse Ox 09/07/20 07:00 98.9 F 71 18 125/80 98 09/07/20 00:21 98.1 F 60 14 94/60 97 09/06/20 18:45 98.1 F 58 L 16 99/61 98 09/06/20 16:17 95 09/06/20 16:00 107/62 09/06/20 15:00 98.0 F 62 16 96/58 97 09/06/20 14:00 55 L 16 09/06/20 13:52 98.2 F 55 L 16 105/60 97 09/06/20 10:00 98.6 F 53 L 18 108/66 96 09/06/20 09:39 98.6 F 65 18 111/74 99 09/06/20 09:19 98 09/06/20 08:35 61 127/80 Intake and Output 09/06/20 09/07/20 09/07/20 22:59 06:59 14:59 Other: Voiding Method Toilet # Voids 1 1 Results 09/06/20 08:23 09/06/20 08:23 Cardiac Enzymes 09/06/20 09/06/20 09/06/20 Range/Units 08:23 08:23 10:44 AST 45 H (14-36) U/L Troponin I <0.012 <0.012 (0.000-0.034) ng/mL 09/06/20 Range/Units 14:23 AST (14-36) U/L Troponin I <0.012 (0.000-0.034) ng/mL Coagulation 09/06/20 Range/Units 08:23 PT 10.5 (9.0-12.0) sec APTT 22.8 (22.0-30.0) sec CBC 09/06/20 Range/Units 08:23 WBC 7.3 (3.8-10.6) k/uL RBC 5.12 (3.80-5.40) m/uL Hgb 15.9 (11.4-16.0) gm/dL Hct 45.4 (34.0-46.0) % Plt Count 391 (150-450) k/uL Comprehensive Metabolic Panel 09/06/20 Range/Units 08:23 Sodium 136 L (137-145) mmol/L Potassium 3.6 (3.5-5.1) mmol/L Chloride 99 (98-107) mmol/L Carbon Dioxide 29 (22-30) mmol/L BUN 16 (7-17) mg/dL Creatinine 0.74 (0.52-1.04) mg/dL Glucose 134 H (74-99) mg/dL Calcium 10.0 (8.4-10.2) mg/dL AST 45 H (14-36) U/L ALT 43 H (4-34) U/L Alkaline Phosphatase 74 (38-126) U/L Total Protein 7.4 (6.3-8.2) g/dL Albumin 4.6 (3.5-5.0) g/dL Current Medications Generic Name Dose Route Start Last Admin Trade Name Freq PRN Reason Stop Dose Admin Hydrocodone Bitart/Acetaminophen 1 each 09/06/20 11:45 09/06/20 20:22 Hydrocodone/Apap 10-325mg 1 Each Tab PO 1 each BID DELORIS Administration Aspirin 325 mg 09/07/20 09:00 Aspirin 325 Mg Tab PO DAILY DELORIS Atenolol 75 mg 09/06/20 21:00 09/06/20 20:24 Atenolol 25 Mg Tab PO 75 mg HS DELORIS Administration Azelastine HCl 2 spray 09/06/20 11:45 09/06/20 21:28 Azelastine 137mcg/[place] NASAL 2 spray BID [facility] Administration Cephalexin 500 mg 09/06/20 13:58 09/06/20 20:23 Cephalexin 500 Mg Cap PO 500 mg TID DELORIS Administration Clobetasol Propionate 1 applic 09/06/20 11:45 09/06/20 22:01 Clobetasol Prop 0.05% Oint 15gm TOPICAL Not Given BID [facility] Protocol Clonazepam 1 mg 09/06/20 11:45 09/06/20 20:23 Clonazepam 1 Mg Tab PO 1 mg BID DELORIS Administration Clonidine 0.1 mg 09/06/20 11:45 09/06/20 20:24 Clonidine Hcl 0.1 Mg Tab PO 0.1 mg BID DELORIS Administration Dicyclomine HCl 10 mg 09/06/20 13:00 09/06/20 20:23 Dicyclomine 10 Mg Cap PO 10 mg QID DELORIS Administration Diphenoxylate HCl/Atropine 1 each 09/06/20 11:34 Diphenox-Atrop 2.5-0.025 Mg 1 Each Tab PO 5XD PRN Loose Stool Estradiol 1 applic 09/09/20 09:00 Estradiol 0.1 Mg/Gm Vaginal Cream 42.5 Gm Tube VAGINAL WESA [facility] Multivitamins 1 each 09/06/20 11:45 09/06/20 14:04 Multivitamins, Thera 1 Each Tab PO 1 each DAILY DELORIS Administration Nitroglycerin 0.4 mg 09/06/20 09:18 Nitroglycerin Sl Tabs 0.4 Mg Tab SUBLINGUAL Q5M PRN Chest Pain Nitroglycerin 1 inch 09/06/20 12:00 09/07/20 05:02 Nitroglycerin Oint 1 Inch/Gm Packet TOPICAL Not Given Q6HR DELORIS Pantoprazole Sodium 40 mg 09/06/20 17:30 09/06/20 18:17 Pantoprazole 40 Mg Tablet PO 40 mg AC-BID DELORIS Administration Pravastatin Sodium 40 mg 09/06/20 21:00 09/06/20 20:22 Pravastatin Sodium 40 Mg Tab PO 40 mg HS DELORIS Administration Sodium Chloride 10 ml 09/06/20 21:00 09/06/20 20:21 Sodium Chloride 0.9% Flush 10 Ml Syringe IV 10 ml BID DELORIS Administration Intake and Output 09/06/20 09/07/20 09/07/20 22:59 06:59 14:59 Other: Voiding Method Toilet # Voids 1 1 09/06/20 08:23 09/06/20 08:23
[2020-09-07 10:51] LABS: Chol/HDL Ratio 3.45; LDL Cholesterol,Calculated 92.2 mg/dL (0.0-131.0); VLDL Calculation 32.8 mg/dL (5.00-40.00)
--- NOTE | 2020-09-07 11:44 | ECHOF ---
Referral Reason:cp MEASUREMENTS -------- HEIGHT: 167.6 cm WEIGHT: 65.3 kg BP: 125/80 RVIDd: 2.8 cm (< 3.3) IVSd: 1.0 cm (0.6 - 1.1) LVIDd: 4.2 cm (3.9 - 5.3) LVPWd: 0.7 cm (0.6 - 1.1) IVSs: 1.4 cm LVIDs: 2.7 cm LVPWs: 1.1 cm LAESV Index (A-L): 26.12 ml/m Ao Diam: 2.2 cm (2.0 - 3.7) AV Cusp: 1.7 cm (1.5 - 2.6) MV EF SLOPE: 79 mm/s (70 - 150) EPSS: 0.2 cm MV E Jaun: 1.16 m/s MV DecT: 202 ms MV A Juan: 1.08 m/s MV E/A Ratio: 1.07 RAP: 5.00 mmHg RVSP: 32.18 mmHg FINDINGS -------- Sinus rhythm. This was a technically adequate study. The left ventricular size is normal. Left ventricular wall thickness is normal. Overall left vent ricular systolic function is normal with, an EF between 55 - 60 %. The diastolic filling pattern is normal for the age of the patient 13.98. The right ventricle is normal in size. Normal LA size by volume 22+/-6 ml/m2. The right atrial size is normal. Interatrial and interventricular septum intact. The aortic valve is trileaflet and appears structurally normal. There is mild aortic valve sclerosi s. There is no evidence of aortic regurgitation. There is no evidence of aortic stenosis. Mild mitral regurgitation is present. Mild tricuspid regurgitation present. There is no evidence of pulmonary hypertension. The right v entricular systolic pressure, as measured by Doppler, is 32.18mmHg. There is no pulmonic regurgitation present. The aortic root size is normal. Normal inferior vena cava with normal inspiratory collapse consistent with estimated right atrial pre ssure of 5 mmHg. There is no pericardial effusion. CONCLUSIONS -------- 1. The left ventricular size is normal. 2. Left ventricular wall thickness is normal. 3. Overall left ventricular systolic function is normal with, an EF between 55 - 60 %. 4. The diastolic filling pattern is normal for the age of the patient 13.98 5. There is mild aortic valve sclerosis. 6. Mild mitral regurgitation is present. 7. Mild tricuspid regurgitation present. DOCUMENT PREPARATION SPECIALIST: Suzi Salinas RDCS
[2020-09-07] MEDS ORDERED: ATROPINE SULFATE 0.1 MG/ML 10ML SYRINGE ONE (12:13)
[2020-09-07 12:36] VITALS: BMI 23.2
[2020-09-07] MEDS: CLOBETASOL PROP 0.05% OINT 15GM TOPICAL SCH (13:18)
[2020-09-07 15:29] VITALS: BP 97/63; PULSE 67; RESP 16; TEMP 98
--- NOTE | 2020-09-07 18:17 | ECHOS ---
STRESS ECHOCARDIOGRAM INDICATION: Chest pain. LUMASON: Vial MEDICATIONS: BASELINE HEART RATE: 55 BASELINE BLOOD PRESSURE: 102/65 MAXIMUM HEART RATE: 145 MAXIMUM BLOOD PRESSURE: 171/89 85% MPHR: 134 100% MPHR: 158 METS: N/A MAXIMUM STAGE REACHED: 4 TOTAL EXERCISE TIME: 13 min 18 sec RESULTS: Baseline EKG shows sinus rhythm, normal axis, normal intervals. Patient was given intravenous dobutamine over a period of 30 minutes as per protocol. Also received 0.5 mg of atropine, achieving 92% of predicted maximal heart rate without chest pain or diagnostic ST-segment depression. Baseline echo shows normal left ventricular size, wall motion and systolic function. Post dobutamine infusion there is normal hyperdynamic response of all segments of myocardium noted. CONCLUSIONS: 1. Negative stress test by EKG criteria. 2. Dobutamine stress echo. BELEN / CHELLEN: [id number] /
[2020-09-09] MEDS ORDERED: ESTRADIOL 0.1 MG/GM VAGINAL CREAM 42.5 GM TUBE VAGINAL SCH (09:00)
== END 2020-09-07 19:28 | disposition home or self-care (01) ==
LOC: EC 07:59 → 6NMEDSUR 09:19
PROVIDERS: ADMIT Family Medicine; ATTEND Family Medicine
DX: R07.89 Other chest pain (principal); R61 Generalized hyperhidrosis; R00.2 Palpitations; R00.0 Tachycardia, unspecified; R12 Heartburn; E78.5 Hyperlipidemia, unspecified; I10 Essential (primary) hypertension; F41.9 Anxiety disorder, unspecified; M51.26 Other intervertebral disc displacement, lumbar region; M19.91 Primary osteoarthritis, unspecified site; Z87.891 Personal history of nicotine dependence; Z87.09 Personal history of other diseases of the respiratory system; Z79.891 Long term (current) use of opiate analgesic; Z79.818 Long term (current) use of other agents affecting estrogen receptors and estrogen levels; Z79.899 Other long term (current) drug therapy; Z79.82 Long term (current) use of aspirin; Z78.0 Asymptomatic menopausal state; Z88.1 Allergy status to other antibiotic agents; Z82.49 Family history of ischemic heart disease and other diseases of the circulatory system; Z80.8 Family history of malignant neoplasm of other organs or systems; Z81.8 Family history of other mental and behavioral disorders; Z82.5 Family history of asthma and other chronic lower respiratory diseases; Z82.61 Family history of arthritis; Z80.42 Family history of malignant neoplasm of prostate
CPT/HCPCS: 93005 ×2; 99285; 36415; 93306; 93351; 80061; 80053; 83735; 84484; 85025; 85610; 85730; 81003; 71046; G0378 ×2; J0461

== ENCOUNTER 2020-10-15 09:24 | Day surgery (SDC) | payer OTHER ==
[2020-10-13 09:04] VITALS: BMI 21.6
[~2020-10-15 09:24] MED LIST changes: -IV FLUID CONTINUATION 1,000 ML IV ONE; -LACTATED RINGERS 1,000 ML IV ONE; +LACTATED RINGERS 1,000 ML IV SCH; -LIDOCAINE 1% (10MG/ML) FOR IV START INTRADERMA ONE; -MIDAZOLAM 2 MG/2 ML VIAL ONE; -ROPIVACAINE 5MG/ML 20ML VIAL ONE; -TRIAMCINOLONE ACETONIDE 40 MG/ML 1 ML VIAL ONE; -fentaNYL (PF) 50 MCG/ML 2 ML AMP ONE
[2020-10-15 09:58] VITALS: TEMP 98.2
[2020-10-15] MEDS ORDERED: LIDOCAINE 1% INJ 10MG/ML (20 ML MDV) ONE (10:29)
[2020-10-15] MEDS ORDERED: PROPOFOL 10 MG/ML 20 ML VIAL IV ONE (10:29)
--- NOTE | 2020-10-15 10:39 | P.PCN ---
Date of Procedure: 10/15/20 Procedure(s) Performed: BRIEF HISTORY: Patient is a 65-year-old, pleasant, female scheduled for an upper endoscopy as a part of evaluation of GERD of several months duration. PROCEDURE PERFORMED: Esophagogastroduodenoscopy with biopsy. PREOPERATIVE DIAGNOSIS: GERD. IV sedation per anesthesia. PROCEDURE: After informed consent was obtained, the patient was brought into the endoscopy unit. IV sedation was administered by Anesthesia under continuous monitoring. Initially the Olympus GIF-140 video endoscope was inserted into the mouth. Esophagus intubated without any difficulty. It was gradually advanced into the stomach and duodenum and carefully examined. The bulb and the second part of the duodenum appeared normal. The scope at this time was withdrawn to the stomach, adequately insufflated with air, and upon careful examination, mucosa of the antrum, had mild diffuse gastritis and biopsies were done from this area. The body, cardia and the fundus appeared normal. The scope was then withdrawn into the esophagus. Moderate size hiatal hernia noted. The GE junction was located at 35 cm from the incisors. The esophagus appeared normal. There were no erosions or ulcerations seen and the patient tolerated the procedure well. IMPRESSION: 1. Moderate size hiatal hernia but no evidence of esophagitis or Camargo's esophagus. 2. Mild antral gastritis. RECOMMENDATIONS: The findings of this examination were discussed with the patient as well as her family. She was advised to follow with the biopsy results and continue with Protonix 40 mg twice daily and follow antireflux measures..
[2020-10-15 10:58] VITALS: BP 144/91; PULSE 61; RESP 16
== END 2020-10-15 11:38 | disposition home or self-care (01) ==
LOC: ORWHC2ENDO 09:24
PROVIDERS: ATTEND Internal Medicine Gastroenterology
DX: K44.9 Diaphragmatic hernia without obstruction or gangrene (principal); K29.50 Unspecified chronic gastritis without bleeding; M19.90 Unspecified osteoarthritis, unspecified site; Z79.82 Long term (current) use of aspirin
CPT/HCPCS: 43239; 88305; J2001; J2704

== ENCOUNTER → 2021-02-16 | Outpatient (CLI) | payer OTHER ==
--- NOTE | 2021-02-16 12:12 | MR ---
EXAMINATION TYPE: MR brain wo con DATE OF EXAM: 02/16/2021 12:07 PM COMPARISON: NONE HISTORY: Pain, head and face FINDINGS: The ventricles, basal cisterns and sulci overlying the cerebral convexities are mildly enlarged. There is evidence of mild periventricular white matter ischemic demyelination. Remote deep white matter insults are also noted. No acute edema is seen on diffusion weighted imaging. There is no evidence for midline shift or mass effect. Acute intracranial hemorrhage or extra-axial collection is not evident. The paranasal sinuses and mastoid air cells are well-aerated. IMPRESSION: Age-related atrophic and chronic small vessel ischemic change. No acute intracranial process at this time.
== END | disposition home or self-care (01) ==
LOC: RADMRIMAIN 11:19
PROVIDERS: ATTEND Psychiatry & Neurology Neurology
DX: I67.82 Cerebral ischemia (principal); G31.9 Degenerative disease of nervous system, unspecified
CPT/HCPCS: 70551

== ENCOUNTER → 2021-06-10 | Outpatient (CLI) | payer OTHER ==
--- NOTE | 2021-06-10 11:36 | CT ---
EXAMINATION TYPE: CT angio abdomen DATE OF EXAM: 06/10/2021 INDICATION: FLANK PAIN CT DLP: 1055 mGy.cm Automated Exposure Control for Dose Reduction was Utilized. TECHNIQUE AND CONTRAST: CT scan of the abdomen is performed without and with IV Contrast, patient injected with 100ML mL of I sovue 370. CTA of the abdominal aorta was performed. MIP and 3-D reconstruction images were generated on an independent workstation and reviewed. COMPARISON: CT dated 12/28/2017 FINDINGS: Normal caliber and enhancement of the descending thoracic aorta as well as abdominal aorta without si gnificant stenosis, occlusion, dissection or aneurysm. Scattered arterial atherosclerotic calcificati ons of the visualized arteries without significant stenosis or occlusion. Single renal artery supplying each kidney. No significant stenosis or occlusion of the renal arteries however there is focal ectasia of the left renal artery at the renal hilum measuring up to 9.5 mm. N o other significant arterial abnormality identified. With the limitation of this CT angiographic study, unremarkable CT appearance of the liver, gallbladd er, spleen, pancreas, adrenals and kidneys. Sizable hiatal hernia containing the gastric fundus and m ost of the gastric body. Unremarkable remainder of the stomach, duodenum and visualized small bowel. Scattered uncomplicated colonic diverticulosis. Unremarkable lung bases. No suspicious abdominal lymp hadenopathy or sizable abdominal fluid. Osteopenia. Degenerative changes of the lumbar spine. No aggr essive bone lesion. IMPRESSION: Focal ectasia of the left renal artery at the left renal hilum measuring up to 9.5 mm as described ab ove. Scattered arterial atherosclerotic calcification. Otherwise unremarkable visualized arteries without significant stenosis or occlusion. Incidental find ings as described above.
== END | disposition home or self-care (01) ==
LOC: RADCTMAIN 07:33
PROVIDERS: ATTEND Family Medicine
DX: I77.89 Other specified disorders of arteries and arterioles (principal); I70.90 Unspecified atherosclerosis
CPT/HCPCS: 74175; Q9967

== ENCOUNTER → 2021-07-29 | Outpatient (CLI) | payer OTHER ==
--- NOTE | 2021-07-29 15:43 | XR ---
EXAMINATION TYPE: XR chest 2V DATE OF EXAM: 07/29/2021 COMPARISON: 09/06/2020 INDICATION: Cough TECHNIQUE: Frontal and lateral views of the chest are obtained. FINDINGS: The heart size is normal. The pulmonary vasculature is normal. The lungs are clear. Rounded density in the epigastric region may be a hiatal hernia. This is not as well-visualized on the lateral view. IMPRESSION: 1. No acute pulmonary process. 2. Hiatal hernia
== END | disposition home or self-care (01) ==
LOC: RADXRMAIN 15:13
PROVIDERS: ATTEND Family Medicine
DX: K44.9 Diaphragmatic hernia without obstruction or gangrene (principal)
CPT/HCPCS: 71046

== ENCOUNTER → 2021-12-02 | Outpatient (CLI) | payer OTHER ==
--- NOTE | 2021-12-07 13:11 | USB ---
Patient History: Menarche at age 17. First Full-Term at age 26. Postmenopausal. Hormonal Contraceptives, starting at age 19 for 10 years. Risk Values: Lizbeth 5 year model risk: 1.3%. NCI Lifetime model risk: 5.3%. Prior Study Comparison: 08/01/2016 Bilateral Screening Mammogram, [facility]. 08/21/2017 Bilateral Screening Mammogram, [facility]. 09/05/2017 Right Diagnostic Mammogram, [facility]. 11/27/2019 Bilateral MG 3D diag mammo w/cad MELVINA - 2, [facility]. 11/27/2019 Left US breast axilla LT - 2, [facility]. 09/23/2021 Left US breast LT, [facility]. 09/23/2021 Bilateral MG diagnostic mammo w CAD MELVINA - 2, [facility]. Findings: The whole breast of the left breast, the axilla of the left breast and the retroareolar of the left breast were scanned. A complete US of all four quadrants of the breast common axilla, and retro-areolar region were reviewed. Particular attention to the axilla, 1:00, and 2:00 sites corresponding to the patient's pain. No solid or cystic masses are identified. Prominent but benign-appearing axillary lymph node. Overall Assessment: Negative, BI-RAD 1 Management: Screening Mammogram of both breasts in 10 months. Further clinical management of patient's left breast pain. Patient should continue monthly self breast exams. These results should not preclude additional follow-up of suspicious palpable abnormalities. Results were given to the patient verbally at the time of exam. Electronically signed and approved by: Sudha Wong M.D. Radiologist
== END | disposition home or self-care (01) ==
LOC: RADUSWWP 10:09
PROVIDERS: ATTEND Family Medicine
DX: N64.4 Mastodynia (principal)

== ENCOUNTER → 2022-02-07 | Outpatient (CLI) | payer OTHER ==
--- NOTE | 2022-02-07 15:14 | XR ---
EXAMINATION TYPE: XR wrist limited LT DATE OF EXAM: 02/07/2022 CLINICAL HISTORY: Pain after injury. TECHNIQUE: Frontal and lateral images of the left wrist are obtained. COMPARISON: None FINDINGS: Osseous structures are demineralized. No acute displaced fracture is seen. Advanced degener ative change at the triscaphe joint is seen with marked joint space loss and joint space sclerosis. T here is radial side spurring. Moderate narrowing at the base of the first metacarpal is present. Over lying soft tissue is unremarkable. IMPRESSION: As above.
== END | disposition home or self-care (01) ==
LOC: RADXRMAIN 14:44
PROVIDERS: ATTEND Family Medicine
DX: S62.92XA Unspecified fracture of left hand, initial encounter for closed fracture (principal); M19.032 Primary osteoarthritis, left wrist

== ENCOUNTER 2023-08-23 08:11 | Day surgery (SDC) | payer MEDICARE, OTHER ==
[2023-08-22 11:27] VITALS: BMI 26.1
[2023-08-23 08:40] VITALS: TEMP 97.2
[2023-08-23] MEDS: IV FLUID CONTINUATION 1,000 ML IV ONE (08:45)
[2023-08-23] MEDS: LACTATED RINGERS 1,000 ML IV SCH (08:55)
[2023-08-23] MEDS ORDERED: LIDOCAINE 1% INJ 10MG/ML (20 ML MDV) ONE (08:58)
[2023-08-23] MEDS ORDERED: PROPOFOL 10 MG/ML 20 ML VIAL IV ONE (08:58)
--- NOTE | 2023-08-23 09:10 | P.PCN ---
Date of Procedure: 08/23/23 Procedure(s) Performed: BRIEF HISTORY: Patient is a 67-year-old, pleasant, white female scheduled for upper endoscopy as a part evaluation of GERD and postprandial abdominal bloating for the last several months duration. She complains of early satiety but no weight loss. No nausea vomiting. She was recently started on Protonix 40 mg daily, Carafate and Reglan with some improvement in his symptoms. PROCEDURE PERFORMED: Esophagogastroduodenoscopy with biopsy. PREOPERATIVE DIAGNOSIS: Postprandial abdominal bloating, GERD and early satiety. IV sedation per anesthesia. PROCEDURE: After informed consent was obtained, the patient was brought into the endoscopy unit. IV sedation was administered by Anesthesia under continuous monitoring. Initially the Olympus GIF-140 video endoscope was inserted into the mouth. Esophagus intubated without any difficulty. It was gradually advanced into the stomach and duodenum and carefully examined. The bulb and the second part of the duodenum appeared normal. Biopsies were done from the duodenum to rule out celiac disease the scope at this time was withdrawn to the stomach, adequately insufflated with air, and upon careful examination, mucosa of the antrum, revealed linear areas of erythema involving the entire antrum consistent with gastritis and biopsies were done from this area. Mucosa of the body, cardia and the fundus appeared normal. The scope was then withdrawn into the esophagus. Moderate size hiatal hernia noted. The GE junction was located at 32 cm from the incisors. The esophagus appeared normal. There were no erosions or ulcerations seen, biopsies were done from the distal esophagus and the patient tolerated the procedure well. IMPRESSION: 1. Mild diffuse antral gastritis. 2. Moderate size hiatal hernia. RECOMMENDATIONS: The findings of this examination were discussed with the patient as well as her family. She was advised to continue with Protonix 40 mg daily and continue with small frequent meals. Await biopsy results..
[2023-08-23 09:13] VITALS: RESP 14
[2023-08-23 09:54] VITALS: BP 132/84; PULSE 64
== END 2023-08-23 10:17 | disposition home or self-care (01) ==
LOC: ORWHC2ENDO 08:11
PROVIDERS: ATTEND Internal Medicine Gastroenterology
DX: K31.9 Disease of stomach and duodenum, unspecified (principal); K29.70 Gastritis, unspecified, without bleeding; K44.9 Diaphragmatic hernia without obstruction or gangrene; K21.00 Gastro-esophageal reflux disease with esophagitis, without bleeding; Z79.899 Other long term (current) drug therapy
CPT/HCPCS: 88305; 43239; J2001; J2704

== ENCOUNTER → 2024-04-15 | Outpatient (CLI) | payer MEDICARE ==
--- NOTE | 2024-04-15 13:15 | CT ---
EXAMINATION TYPE: CT brain wo con, CT facial bones wo con CT DLP: 1688 mGycm, Automated exposure control for dose reduction was used. DATE OF EXAM: 04/15/2024 1:05 PM COMPARISON: MRI brain 02/16/2021, CT brain 06/15/2020 CLINICAL INDICATION:Female, 68 years old with history of H93.19 tinnitus; JUNE, ringing in ears TECHNIQUE: Brain: Multiple axial CT images of the brain were obtained without IV contrast. Facial bones; axial CT images of the facial bones were obtained without contrast and soft tissue and bone windows. Coronal and sagittal reformatted images were also reviewed. FINDINGS: Brain: Extra-axial spaces: No abnormal extra-axial fluid collections. Anterior falx calcifications. Ventricular system: Within normal limits Cerebral parenchyma: Cerebral atrophy. No acute intraparenchymal hemorrhage or mass effect. The montez -white junction is well differentiated. Cerebellum: Unremarkable. Mass effect: No evidence of midline shift. Intracranial vasculature: unremarkable Soft tissues: Normal. Calvarium: No depressed skull fracture. Paranasal sinuses and mastoid air cells: Clear. Visualized orbits: Orbital contents are intact. Facial Bones: There is no evidence of fracture, subluxation, dislocation, or significant soft tissue swelling. Bila teral palatine tonsilliths. The orbital contents are unremarkable. The temporal-mandibular joints herson ear symmetric with mild degenerative changes. Minimal nasal septal deviation to the right. The ostiom eatal complexes are clear bilaterally. No evidence for cholesteatoma. The mastoid air cells are clear bilaterally. The internal and external auditory canals appear unremarkable. The visualized portion o f the paranasal sinuses appear clear. Sellar and sphenoid pneumatization. IMPRESSION: 1. No acute intracranial process. 2. No acute facial bone fracture. 3. No evidence of paranasal sinus disease. [facility], , 04/15/2024 1:13 PM
== END | disposition home or self-care (01) ==
LOC: RADCTMAIN 12:36
PROVIDERS: ATTEND Family Medicine
DX: H93.19 Tinnitus, unspecified ear (principal); J32.9 Chronic sinusitis, unspecified
CPT/HCPCS: 70450; 70486

== ENCOUNTER → 2024-05-06 | Outpatient (CLI) | payer MEDICARE ==
--- NOTE | 2024-05-06 13:58 | US ---
EXAMINATION TYPE: US carotid duplex BILAT DATE OF EXAM: 05/06/2024 COMPARISON: NONE CLINICAL INDICATION: Female, 68 years old with history of R55 SYNCOPE AND COLLAPSE; Tinnitus Additional History: .... TECHNIQUE: Grayscale, color Doppler and spectral Doppler evaluation of the bilateral carotid systems and vertebral arteries. Indirect Doppler criteria was utilized. FINDINGS: EXAM MEASUREMENTS: RIGHT: Peak Systolic Velocity (PSV) cm/sec ----- Right CCA: 71 ----- Right ICA: 80 ----- Right ECA: 130 ICA/CCA ratio: 1.1 RIGHT: End Diastole cm/sec ----- Right CCA: 24 ----- Right ICA: 27 ----- Right ECA: 18 LEFT: Peak Systolic Velocity (PSV) cm/sec ----- Left CCA: 92 ----- Left ICA: 92 ----- Left ECA: 103 ICA/CCA ratio: 1.0 LEFT: End Diastole cm/sec ----- Left CCA: 24 ----- Left ICA: 33 ----- Left ECA: 14 VERTEBRALS (direction of flow): Right Vertebral: Antegrade Left Vertebral: Antegrade Rhythm: Normal SIX PACK PACKER NOTES: No intimal thickening, plaque, or elevated velocities seen. Color Doppler imaging shows patency with blood flow throughout the carotid artery. Spectral waveforms are within normal limits. IMPRESSION: No evidence for hemodynamically significant stenosis. Criteria for Assigning % of Stenosis / Diameter reduction (Estimation based on the indirect measurements of the internal carotid artery velocities (ICA PSV). 1. Normal (no stenosis)=ICA PSV < 125 cm/s: ratio < 2.0: ICA EDV<40 cm/s. 2. Less than 50% stenosis=ICA PSV < 125 cm/s: ratio < 2.0: ICA EDV<40 cm/s. 3. 50 to 69% stenosis=ICA PSV of 125 to 230 cm/s: ration 2.0 ? 4.0: ICA EDV 40-100 cm/s. 4. Greater than 70% stenosis to near occlusion= ICA PSV > 230 cm/s: ratio > 4.0: ICA EDV > 100 cm/s. 5. Near occlusion= ICA PSV velocities may be low or undetectable: variable ratio and ICA EDV. 6. Total occlusion=unable to detect flow. [facility], , 05/06/2024 1:55 PM
== END | disposition home or self-care (01) ==
LOC: RADUSWWP 13:21
PROVIDERS: ATTEND Family Medicine
DX: R55 Syncope and collapse (principal)
CPT/HCPCS: 93880

== ENCOUNTER → 2024-06-12 | Outpatient (CLI) | payer MEDICARE ==
--- NOTE | 2024-06-12 14:02 | XR ---
EXAMINATION TYPE: XR lumbar spine 2 or 3V DATE OF EXAM: 06/12/2024 CLINICAL HISTORY: pain TECHNIQUE: Three views of the lumbar spine are submitted. COMPARISON: MRI lumbar spine 01/22/2020, lumbosacral spine radiographs 05/15/2018, lumbar spine radiogr aph 03/06/2018 FINDINGS: There are 5 lumbar type vertebral bodies identified. No acute fracture or dislocation. Minimal levocu rvature of the lumbar spine with apex at L3-L4. Vertebral body heights are within normal limits. Mu ltilevel disc space narrowing with endplate sclerosis and osteophyte formation. Multilevel facet arth ropathy lower lumbar spine. The overlying soft tissue appears unremarkable. Atherosclerotic calcific ation of the aorta. Left pelvic phlebolith. IMPRESSION: 1. No acute fracture or dislocation is seen in the lumbar spine. 2. Moderate multilevel degenerative disc disease of the lumbar spine. [facility], , 06/12/2024 1:59 PM
== END | disposition home or self-care (01) ==
LOC: RADXRMAIN 13:35
PROVIDERS: ATTEND Family Medicine
DX: M51.360 Other intervertebral disc degeneration, lumbar region with discogenic back pain only (principal); M47.816 Spondylosis without myelopathy or radiculopathy, lumbar region
CPT/HCPCS: 72100

== ENCOUNTER 2024-08-02 09:51 | Day surgery (SDC) | payer MEDICARE ==
[2024-08-01 10:18] VITALS: BMI 25.0
--- NOTE | 2024-08-01 19:29 | HP ---
HISTORY AND PHYSICAL CHIEF COMPLAINT: Chronic laryngitis. HISTORY OF PRESENT ILLNESS: This patient is a 68-year-old female, who was recently seen in my office complaining of having chronic laryngitis and possible canker sores in her mouth and hypopharynx. The patient states that she has been treated for the sores in her mouth by her primary care doctor without any significant improvement. She is quite concerned because her father of oral cancer. She states that she quit smoking over 30 years ago and has not used any tobacco products since that time. At the time that she was seen in my office, it was noted that the patient's voice sound as though she had a double voice, so-called diplophonia. Indirect laryngoscopy using a headlight and mirror did not reveal evidence of any dysfunction of the vocal cords. However, it was noted that she had a small canker sore in the hypopharynx. I had previously advised the patient to try gargling with blue Listerine 3 times daily. She was seen back in the office, and apparently she stated that the discomfort in her voice had significantly improved. Upon repeat examination, the lesion previously noted appeared to have gotten smaller, but it was still present. At that point, I advised her that because it was still present and because of her concern about throat cancer that it would be best that she undergo a suspension microlaryngoscopy and at that time if necessary I could biopsy the area. Apparently, her father was a heavy smoker and a heavy drinker and developed cancer of the tongue. PAST MEDICAL HISTORY: Reveals that she has allergies to Cleocin. CURRENT MEDICATIONS: Include; 1. Losartan. 2. Protonix. 3. [place]. 4. Astelin nasal spray. 5. Clonidine. 6. Klonopin. 7. Reglan. 8. Prednisone. 9. Carafate. 10.Pravastatin. 11.Breztri. TEST ANALYST: She is 2 para and 2 , 0 miscarriage. PAST SURGICAL HISTORY: Include an ablation procedure on her uterus because of bleeding. REVIEW OF SYSTEMS: CARDIOVASCULAR SYSTEM: Positive for hypertension. RESPIRATORY SYSTEM: Positive for COPD/emphysema. GASTROINTESTINAL SYSTEM: Positive for GERD (gastroesophageal reflux disorder). METABOLIC/ENDOCRINE: Positive for hypercholesterolemia. MUSCULOSKELETAL: Positive for osteoarthritis. Remainder of review of systems is unremarkable. PHYSICAL EXAMINATION: GENERAL: The patient is a 68-year-old female, who was alert and cooperative. HEENT: The patient is normocephalic. Tympanic membranes are normal. Middle ear space is free of any fluid or infection. Pupils are equal, round, reactive to light and accommodation. Extraocular movements within normal limits. Intranasal examination reveals [id number] septal deviation with compensatory hypertrophy of the inferior turbinates. Examination of the oropharynx, including indirect laryngoscopy with a headlight and mirror reveals that the patient has no suspicious lesions on the floor of the mouth, right or left piriform sinuses at the base of the tongue or vallecular or epiglottis. Both vocal cords appear to be normal. The patient does have a suspicious lesion appearing on the right side of the hypopharynx, which has gotten smaller since her initial visit. However, it is still present. Palpation of the neck is negative for any neck masses or lymphadenopathy. Cranial nerves 2 through 12 and the remainder of the head and neck exam all within normal limits. Chest, cardiovascular, both lung rodriguez are clear to percussion and auscultation. The patient is in regular sinus rhythm. S1 and S2 are present without any murmurs. S3s or S4s. Peripheral pulses are bilaterally symmetrical. ABDOMEN: There is no evidence of any masses, megaly, or tenderness. Abdomen is soft. SKIN: Unremarkable. MUSCULOSKELETAL: Normal. NEUROLOGICAL: Within normal. PELVIC/RECTAL: Deferred at this time because the patient has this done on a regular basis at her family physician's office. The remainder of physical exam is essentially unremarkable. IMPRESSION: Chronic laryngitis with lesion in the hypopharynx. PLAN: We are going to get a schedule for suspension microlaryngoscopy with biopsy/possible laser under general anesthesia. Attention, RNs in the pre-surgical area: I have ordered for this patient to receive 1000 mg of Ofirmev IV to be given once an intravenous line has been established. In addition, I have ordered for this patient to receive 2 g of Ancef. ANC of IV to be given once an intravenous line has been established. If the pharmacy department sends a different pre-surgical prophylactic antibiotic to the pre-surgical area for this patient, that order should be cancelled, and then medication should be returned to the pharmacy department. Please make sure that the patient's account is credited appropriately. I have discussed the risks, benefits and alternative therapies for the above-mentioned procedure and for both sedation/analgesia as well as necessary blood product administration, if indicated, as they pertain to this patient. The patient has indicated her understanding and acceptance of the risks and procedures discussed. MMODL / IJN: [id number] /
[~2024-08-02 09:51] MED LIST changes: +HYDROmorphone 0.5 MG/0.5 ML SYRINGE IVP PRN; -LACTATED RINGERS 1,000 ML IV SCH; +LIDOCAINE 1% (10MG/ML) FOR IV START INTRADERMA PRN; +MIDAZOLAM 2 MG/2 ML VIAL IV PRN; +fentaNYL (PF) 50 MCG/ML 2 ML AMP IVP PRN
[2024-08-02] MEDS: IV FLUID CONTINUATION 1,000 ML IV ONE (10:22)
[2024-08-02] MEDS: LACTATED RINGERS 1,000 ML IV SCH (10:46)
[2024-08-02] MEDS: DEXAMETHASONE SOD PHOSPHATE 4 MG/ML 1 ML VIAL IV ONE (10:49)
[2024-08-02] MEDS: ONDANSETRON 4 MG/2 ML VIAL IVP ONE (10:49)
[2024-08-02 10:50] LABS: Glucose,Whole Blood 110 mg/dL (70-110)
[2024-08-02] MEDS: ACETAMINOPHEN IV (For NPO) 1,000 MG in EMPTY BAG 1 BAG IVPB ONE (10:52)
[2024-08-02] MEDS ORDERED: fentaNYL (PF) 50 MCG/ML 2 ML AMP ONE (11:44)
[2024-08-02] MEDS ORDERED: LIDOCAINE 1% INJ 10MG/ML (20 ML MDV) ONE (11:44)
[2024-08-02] MEDS ORDERED: DEXAMETHASONE SOD PHOSPHATE 10 MG/ML 1 ML VIAL ONE (11:44)
[2024-08-02] MEDS ORDERED: MIDAZOLAM 2 MG/2 ML VIAL ONE (11:44)
[2024-08-02] MEDS ORDERED: PROPOFOL 10 MG/ML 20 ML VIAL IV ONE (11:44)
[2024-08-02] MEDS ORDERED: GLYCOPYRROLATE 0.2 MG/ML 2 ML VIAL ONE (11:44)
[2024-08-02] MEDS ORDERED: SUCCINYLCHOLINE CHLORIDE 200 MG/10 ML VIAL IV ONE (11:44)
[2024-08-02] MEDS: ceFAZolin 2 GM in DEXTROSE 5% IN WATER 50 ML IVPB ONE (11:47)
[2024-08-02 12:41] VITALS: TEMP 97.2
[2024-08-02 14:29] VITALS: BP 144/77; PULSE 65; RESP 18
--- NOTE | 2024-08-04 17:21 | OP ---
OPERATIVE REPORT DATE OF SERVICE : 08/02/2024 PREOPERATIVE DIAGNOSIS: Chronic laryngitis with lesion of the hypopharynx. POSTOPERATIVE DIAGNOSIS: Chronic laryngitis. ANESTHESIA: General. OPERATIVE PROCEDURE: Suspension microlaryngoscopy. COMPLICATIONS: None. ESTIMATED BLOOD LOSS: Zero. DESCRIPTION OF PROCEDURE: The patient was placed on the operating table in the supine position and after uneventful induction and endotracheal intubation, satisfactory general anesthesia was obtained. Next, the patient was draped in usual customary fashion. Following this, the laryngoscope was introduced into the patient's oropharynx, and the entire oropharynx, including the floor of the mouth, right and left piriform sinus, vallecula, base of tongue, and epiglottis were inspected. Next, the tip of the laryngoscope was introduced into the laryngeal introitus. Next, after both true vocal cords were visualized, the Lewy apparatus was attached through the handle of the laryngoscope, and the laryngoscope was suspended on the patient's chest. Next, using the Zeiss operating microscope, inspection of the larynx and laryngeal structures under magnified visualization was performed. There did not appear to be any evidence of any suspicious lesions as far as any polyps, nodules, ulcers, etc. In addition to this, previous inspection of the entire hypopharynx, piriform sinus, etc. did not reveal any suspicious lesions. The site of a previous lesion on the base of tongue had completely disappeared. No other suspicious lesions were noted elsewhere in the oropharynx upon inspection, including there were no suspicious lesions of the tongue. At this point, the procedure was terminated. The patient was given 10 mg of Decadron IV to reduce any postsurgical laryngeal edema. The procedure was terminated. There were no intraoperative complications. The patient tolerated the procedure well and was returned to recovery room in satisfactory condition. No biopsies were performed. MMODL / IJN: [id number] /
== END 2024-08-02 15:03 | disposition home or self-care (01) ==
LOC: OR 09:51
PROVIDERS: ATTEND Otolaryngology
DX: J37.0 Chronic laryngitis (principal); K21.9 Gastro-esophageal reflux disease without esophagitis; K44.9 Diaphragmatic hernia without obstruction or gangrene; I10 Essential (primary) hypertension; E78.5 Hyperlipidemia, unspecified; F41.9 Anxiety disorder, unspecified; F32.A Depression, unspecified; M54.50 Low back pain, unspecified; Z87.891 Personal history of nicotine dependence; Z88.1 Allergy status to other antibiotic agents; Z79.899 Other long term (current) drug therapy
CPT/HCPCS: 31525; J1100; J0690; J2405